=== PATIENT | male | born 1965 | race American Indian/Alaskan Native ===

== ENCOUNTER 2021-07-08 16:42 | Emergency (ER) | payer OTHER, SELFPAY ==
--- NOTE | ~2021-07-08 | XR_ITS ---
EXAMINATION: XR foot LT 2V DATE: 07/08/2021 17:48 INDICATION: Left foot numbness and swelling. TECHNIQUE: 2 views of left foot were obtained. COMPARISON: None. FINDINGS: Bone alignment is normal. No fracture. There is mild osteoarthritis of first metatarsophala ngeal joint and some of the interphalangeal joints and midfoot joints. There are enthesophytes at the posterior and plantar aspects of calcaneal tuberosity. IMPRESSION: 1. Mild polyarticular osteoarthritis. Reviewed, dictated and finalized at location A.
--- NOTE | ~2021-07-08 | XR_ITS ---
EXAMINATION: XR foot RT 2V DATE: 07/08/2021 17:48 INDICATION: Right foot numbness. TECHNIQUE: 2 views of right foot were obtained. COMPARISON: None. FINDINGS: There is moderate hallux valgus. No fracture. There is mild osteoarthritis of first metatar sophalangeal joint and some of the interphalangeal joints and midfoot joints. There are enthesophytes at the posterior and plantar aspects of calcaneal tuberosity. IMPRESSION: 1. Moderate hallux valgus. 2. Mild polyarticular osteoarthritis. Reviewed, dictated and finalized at location A.
[2021-07-08 17:03] VITALS: BP 110/72; PULSE 71; PULSE 72; RESP 18; RESP 23; TEMP 36.4; O2SAT 95; O2SAT 99
[2021-07-08 17:16] VITALS: BP 106/53; PULSE 66; RESP 20; O2SAT 99
[2021-07-08 17:29] VITALS: BP 106/53; PULSE 69; RESP 21; O2SAT 100
[2021-07-08 17:42] LABS: Basophils Percent Auto 0.7 % (0.2-1.2); Eosinophils Absolute Auto 0.1 K/mm3 (0-0.3); Eosinophils Percent Auto 1.1 % (0-4.4); Hematocrit 46.6 % (42.0-52.0); Hemoglobin 15.9 g/dL (14.0-18.0); Immature Granulocyte Absolute 0.01 K/mm3 (0.00-0.031); Immature Granulocyte Percent A 0.2 % (0-0.5); Lymphocytes Absolute Auto 2.73 K/mm3 (0.9-3.2); Lymphocytes Percent Auto 49.3 % (18.3-44.2); Mean Corpuscular HGB Conc 34.1 g/dl (32-36); Mean Corpuscular Hemoglobin 36.2 pg (26-34); Mean Corpuscular Volume 106.2 fl (80-100); Mean Platelet Volume 9.9 fl (7.4-10.4); Monocytes Absolute Auto 0.3 K/mm3 (0.1-0.6); Neutrophils Absolute Auto 2.4 K/mm3 (1.3-6.7); Neutrophils Percent Auto 42.7 % (45.5-73.1); Platelet Count Result 199 k/mm3 (150-375); Red Blood Count 4.39 M/mm3 (4.6-6.20); Red Cell Distribution Width 13.8 % (11.5-14.5); White Blood Count 5.5 K/mm3 (4.5-10.0)
[2021-07-08 17:54] LABS: Anion Gap 5 mmol/L (8-16); Blood Urea Nitrogen 5 mg/dL (9-20); Calcium 8.1 mg/dL (8.4-10.2); Carbon Dioxide 30 mmol/L (22-30); Chloride 111 mmol/L (98-107); Estimated CRCL calculation 132 ml/min; Estimated Glomerular Filt Rate > 60; Glucose 81 mg/dL (65-110); Potassium 3.3 mmol/L (3.4-5.0); Sodium 146 mmol/L (137-145)
[2021-07-08 18:07] LABS: Ethanol 356 mg/dL (<10)
--- NOTE | 2021-07-08 18:38 | ECG_ITS ---
Measurements Intervals [place] Rate: 68 P: 67 WV: 202 QRS: 12 QRSD: 128 T: 91 QT: 445 QTc: 475 Interpretive Statements SINUS RHYTHM BORDERLINE AV CONDUCTION DELAY LEFT BUNDLE BRANCH BLOCK BASELINE ARTIFACT- I, II, III, AVR, AVL, AVF, V1-V6 ABNORMAL ECG Electronically Signed On 07-09-2021 6:30:22 CDT by Silas Gallo D.O.
[2021-07-08] MEDS: KETOROLAC 15 MG/ML VIAL (*BKC) IV PUSH (18:39)
--- NOTE | 2021-07-08 18:39 | ED.LOWEXIN ---
HPI - Extremity Injury (Lower) General Chief Complaint: Extremity Injury, Lower <Partha Kraus MD - Last Filed: 07/09/21 15:01> Stated Complaint: I cant walk <Partha Kraus MD - Last Filed: 07/09/21 15:01> Time Seen by Provider: 07/08/21 17:13 <Partha Kraus MD - Last Filed: 07/09/21 15:01> Source: patient <Partha Kraus MD - Last Filed: 07/09/21 15:01> History of Present Illness HPI Narrative: Patient presents with bilateral lower extremity pain. Reports has been present for months getting progressively worse. rePorts he cannot walk because his pain is too bad. Denies any trauma he reports his pain is achy and all over his feet radiates up his legs and worse with trying to ambulate. Also reports edema to the lower extremities. Denies chest pain or shortness of breath denies fevers, cough, congestion. He reports he does not take medications on a regular basis <Partha Kraus MD - Last Filed: 07/09/21 15:01> Related Data Home Medications: Home Medications Medication Instructions Recorded Confirmed No Home Medications 07/08/21 07/08/21 <Partha Kraus MD - Last Filed: 07/09/21 15:01> Allergies/Adverse Reactions: Allergies Allergy/AdvReac Type Severity Reaction Status Date / Time No Known Allergies Allergy Mild Verified 07/08/21 17:02 <Partha Kraus MD - Last Filed: 07/09/21 15:01> Review of Systems Review of Systems: CONSTITUTIONAL: Denies fever, chills, or sweats. EYES: Denies visual changes, redness, or discharge. ENT: Denies rhinorrhea, congestion, sore throat, or otalgia. CARDIOVASCULAR: Denies chest pain, palpitations, or edema. RESPIRATORY: Denies cough or dyspnea. GASTROINTESTINAL: Denies abdominal pain, nausea, vomiting, or diarrhea. GENITOURINARY: Denies dysuria or hematuria. SKIN: Denies rash or itching. MUSCULOSKELETAL: Denies back pain, or myalgia. NEUROLOGIC: Denies headache, numbness, dizziness, or weakness. PSYCHIATRIC: Denies anxiety or depression. <Partha Kraus MD - Last Filed: 07/09/21 15:01> All systems reviewed & are unremarkable except as noted in HPI and below <Partha Kraus MD - Last Filed: 07/09/21 15:01> PMFSH Past Medical History Medical History: Medical History (Updated 07/08/21 @ 18:48 by Partha Kraus MD) Bilateral leg numbness Weight loss, abnormal <Partha Kraus MD - Last Filed: 07/09/21 15:01> Family History Family History: Family History Father Family history of premature coronary heart disease Hypertension Mother Family history of premature coronary heart disease Family history of Alzheimer's disease Grandparent Family history of lung cancer Family history of malignant neoplasm of uterus Other Family history of cardiovascular disease <Partha Kraus MD - Last Filed: 07/09/21 15:01> Social History Social History: Social History Smoking status: Current every day smoker (Cigars ~ 4/day) Alcohol intake: current <Partha Kraus MD - Last Filed: 07/09/21 15:01> Exam Narrative: GENERAL: Well-appearing, well-nourished, and in no acute distress. HEAD: Normocephalic, atraumatic. EYES: PERRLA and EOMI. ENT: Nares clear, no rhinorrhea or epistaxis. Mucous membranes moist. NECK: Supple. No masses. No JVD CHEST: Clear to auscultation. No respiratory distress. No wheezes rales or rhonchi HEART: Regular rate and rhythm. No murmur heard. Normal peripheral pulses. ABDOMEN: Soft, nontender, nondistended, normal active bowel sounds. EXTREMITIES: Normal range of motion. No edema. SKIN: Warm, dry, no rash. NEURO: No focal deficits. Alert and oriented x3. PSYCH: Normal mood and affect. <Partha Kraus MD - Last Filed: 07/09/21 15:01> Course Reevaluation(s) Reevaluation #1: Patient reported suicidal ideation with a plan to the n
--- NOTE | 2021-07-08 18:41 | PC.NURSE ---
Patient reports I just want to , I have a plan but don't have any means to act out this plan. 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 I just want to , I have no medications and an homeless. EDP aware at this time.
[2021-07-08 18:58] LABS: Acetaminophen < 10 ug/mL (10-30); Salicylate < 1.0 mg/dL (2-20)
[2021-07-08 19:00] VITALS: BP 110/63; PULSE 79; RESP 28; O2SAT 98
[2021-07-08 19:04] LABS: Add Urine Microscopic? NO; Appearance Urine Clear (Clear); Bilirubin Urine Negative (Negative); Blood Urine Negative (Negative); Color Urine Straw (Yellow); Glucose Urine UA Negative (Negative); Ketones Urine Negative (Negative); Leukocyte Esterase Ur Negative LEU/UL (Negative); Nitrate Urine Negative (Negative); Protein Urine Negative (Negative); Urobilinogen Urine Negative mg/dL (<2.0)
[2021-07-08 19:06] LABS: Specific Grav Ur 1.003 (1.001-1.035)
[2021-07-08 19:08] LABS: Barbiturate Screen Urine Negative (Negative); Benzodiazepines Screen Urine Negative (Negative)
[2021-07-08 19:10] LABS: Amphetamine Screen Urine Negative (Negative); Cannabinoid Screen Urine Negative (Negative); Methadone Screen Urine Negative (Negative); Opiate Screen Urine Negative (Negative); Phencyclidine Screen Urine Negative (Negative)
[2021-07-08 20:00] VITALS: BP 130/82; PULSE 77; RESP 16; O2SAT 96
[2021-07-08 21:08] VITALS: BP 133/85; PULSE 78; RESP 16; O2SAT 96
[2021-07-08 21:58] LABS: Alanine Aminotransferase 28 U/L (4-50); Albumin Level 3.8 g/dL (3.5-5.1); Alkaline Phosphatase 53 U/L (38-126); Aspartate Amino Transferase 46 U/L (17-59); Bilirubin,Total 0.2 mg/dL (0.2-1.3)
[2021-07-08 22:08] LABS: NT Pro B Type Natriuretic Pept 283 pg/mL (5-100)
[2021-07-09 01:57] VITALS: BP 129/69; PULSE 81; RESP 16; O2SAT 98
[2021-07-09 03:55] VITALS: BP 152/84; PULSE 89; RESP 18; O2SAT 98
[2021-07-09 05:57] LABS: Ethanol 50 mg/dL (<10)
[2021-07-09 07:01] VITALS: BP 181/93; PULSE 143; RESP 18; TEMP 36.7; O2SAT 100
[2021-07-09 07:35] VITALS: BP 170/93; PULSE 94; RESP 17; TEMP 36.8; O2SAT 99
--- NOTE | 2021-07-09 08:19 | PC.NURSE ---
Crisis hotline called at this time. Reports they will come in and evaluate the patient.
--- NOTE | 2021-07-09 10:00 | PC.NURSE ---
[facility] and approved to be discharged with a safety plan in place. Dr. Kraus made aware of this.
[2021-07-09 21:22] LABS: Cocaine Screen Urine Negative (Negative)
== END 2021-07-09 11:23 | disposition home or self-care (01) ==
PROVIDERS: General Practice; Emergency Provider Emergency Medicine; PCP Family Medicine
DX: F10.10 Alcohol abuse, uncomplicated (principal); Y90.8 Blood alcohol level of 240 mg/100 ml or more; M79.605 Pain in left leg; M79.604 Pain in right leg; R60.0 Localized edema; F17.290 Nicotine dependence, other tobacco product, uncomplicated; I44.7 Left bundle-branch block, unspecified
CPT/HCPCS: 36415; 73620; 80048; 80076; 80307; 81003; 83880; 84443; 85025; 93005; 96372; 99284; J1885

== ENCOUNTER 2022-12-19 18:49 | Emergency (ER) | payer OTHER, SELFPAY ==
--- NOTE | ~2022-12-19 | CT_ITS ---
EXAMINATION: CT cervical spine wo con DATE: 12/19/2022 20:05 INDICATION: Head injury TECHNIQUE: Computed tomography (CT) of the cervical spine was performed without intravenous contrast. The dose-length product (DLP) was 450.49 mGy-cm. Automated exposure control and iterative reconstruc tion technique were employed. COMPARISON: None FINDINGS: Bone alignment is normal. There is no fracture. There is severe loss of intervertebral disc space height at C6-7 and moderate loss of intervertebral disc space height throughout the remainder of the cervical spine. The odontoid process is intact. Degenerative osteophytes project from the ante rior endplates of multiple vertebral bodies. There is multilevel severe facet and uncovertebral joint osteoarthritis. There is moderate central canal stenosis at C6-7. IMPRESSION: 1. Moderate to severe cervical spondylosis without acute findings. Reviewed, dictated and finalized at location F.
--- NOTE | ~2022-12-19 | CT_ITS ---
EXAMINATION: CT brain wo con INDICATION: Head injury COMPARISON: None TECHNIQUE: Standard unenhanced head CT. The dose-length product (DLP) was 605.33 mGy-cm. The mA was a djusted according to patient size. Iterative reconstruction technique was employed. FINDINGS: There is no intracranial hemorrhage, acute infarction, or abnormal mass lesion. The ventric les are normal. There is no abnormal mass effect or midline shift. The massey-white matter differentiat ion is normal. The basal cisterns are patent. The orbits are normal. The paranasal sinuses, mastoids and calvarium are normal. IMPRESSION: 1. No acute intracranial abnormality. Reviewed, dictated and finalized at location F.
[2022-12-19 18:53] VITALS: BP 111/69; PULSE 74; RESP 14; TEMP 36.6; O2SAT 99
[2022-12-19] MEDS: ACETAMINOPHEN 500 MG TABLET 1000 MG PO (19:45)
--- NOTE | 2022-12-19 19:46 | ED.GENADULT ---
HPI - General Adult General Chief complaint: Fall Stated complaint: fall with head injury Time Seen by Provider: 12/19/22 19:01 History of Present Illness HPI narrative: this is a 57-year-old male sent from [facility] rehab after a fall yesterday at 1:00 p.m.. Patient was walking with his walker when his legs gave out he fell forward and struck the front of his head. He is on aspirin and Plavix. He was sent to the hospital approximately 36 hours later. Patient has been hospitalized for lower extremity weakness although he is not sure of the cause. He is denying other complaints at this time. Related Data Home Medications Medication Instructions Recorded Confirmed aspirin 81 mg capsule 81 mg PO DAILY 12/19/22 12/19/22 atorvastatin 40 mg tablet 40 mg PO DAILY 12/19/22 12/19/22 cholecalciferol (vitamin D3) 50 12/19/22 12/19/22 mcg (2,000 unit) tablet clopidogrel 75 mg tablet 75 mg PO DAILY 12/19/22 12/19/22 cyanocobalamin (vitamin B-12) 1,000 mcg PO DAILY 12/19/22 12/19/22 1,000 mcg tablet diltiazem HCl 240 mg capsule,24 240 mg PO DAILY 12/19/22 12/19/22 hr,extended release fluoxetine 20 mg capsule 20 mg PO DAILY 12/19/22 12/19/22 Allergies Allergy/AdvReac Type Severity Reaction Status Date / Time No Known Allergies Allergy Mild Verified 10/05/21 09:28 [facility] Past Medical History Medical History Alcohol abuse Bilateral leg numbness BMI 28.0-28.9,adult Homelessness Neuropathy Weight loss, abnormal Family History Family History Father Family history of premature coronary heart disease Hypertension Mother Family history of premature coronary heart disease Family history of Alzheimer's disease Grandparent Family history of lung cancer Family history of malignant neoplasm of uterus Other Family history of cardiovascular disease Social History Social History Smoking status: Current every day smoker (Cigars ~ 4/day) Alcohol intake: current Exam Narrative: APPEARANCE: Patient appears older than his stated age, Head: atraumatic. facial tattoos EYES: 2 mm equal and reactive NOSE: Atraumatic NECK: Trachea midline RESPIRATORY: No increased rate of breathing clear to auscultation CARDIOVASCULAR: RRR, nonpitting edema of lower extremities ABDOMINAL: Non-distended MUSCULOSKELETAl: No obvious deformities NEURO: Alert. Cranial nerves 2-12 grossly intact. sensation light touch motor function cerebellar function intact in the upper extremities. Lower extremities have severe weakness worse on the left than the right. Some effort against gravity but unable to lift his legs off the ground. Decreased sensation which patient says is chronic. SKIN:: Warm, dry. Normal color PSYCHIATRIC: Normal affect Course Vital Signs Vital signs: Vital Signs Temperature 97.8 F 12/19/22 18:53 Pulse Rate 74 12/19/22 18:53 Respiratory Rate 14 12/19/22 18:53 Blood Pressure 111/69 12/19/22 18:53 Pulse Oximetry 99 12/19/22 18:53 Oxygen Delivery Room Air 12/19/22 18:53 Temperature 97.8 F 12/19/22 18:53 Pulse Rate 74 12/19/22 18:53 Respiratory Rate 14 12/19/22 18:53 Blood Pressure 121/63 12/19/22 21:01 Pulse Oximetry 99 12/19/22 18:53 Oxygen Delivery Room Air 12/19/22 18:53 Medical Decision Making [facility] Narrative Medical decision making narrative: -Presentation: Chronically unwell appearing 57-year-old male presenting 36 hours after a fall on aspirin and Plavix. CT head and C-spine have been ordered. Basic lab work and coags will be obtained. The patient is already in rehab for his lower extremity weakness. -DDX includes but is not limited to: neuropathy, weakness of the lower extremities, intracranial hemorrhage -Co-morbidities complicating care: history of alcoholism, chronic lower
[2022-12-19 20:13] VITALS: BP 105/72
[2022-12-19 20:16] VITALS: BP 106/66
[2022-12-19 20:24] LABS: Basophils Percent Auto 0.6 % (0.2-1.2); Eosinophils Absolute Auto 0.1 K/mm3 (0-0.3); Eosinophils Percent Auto 1.4 % (0-4.4); Hematocrit 34.4 % (42.0-52.0); Hemoglobin 11.5 g/dL (14.0-18.0); Immature Granulocyte Absolute 0.02 K/mm3 (0.00-0.031); Immature Granulocyte Percent A 0.4 % (0-0.5); Lymphocytes Absolute Auto 1.59 K/mm3 (0.9-3.2); Lymphocytes Percent Auto 31.4 % (18.3-44.2); Mean Corpuscular HGB Conc 33.4 g/dl (32-36); Mean Corpuscular Hemoglobin 37.7 pg (26-34); Mean Corpuscular Volume 112.8 fl (80-100); Mean Platelet Volume 11.5 fl (7.4-10.4); Monocytes Absolute Auto 0.6 K/mm3 (0.1-0.6); Neutrophils Absolute Auto 2.8 K/mm3 (1.3-6.7); Neutrophils Percent Auto 54.2 % (45.5-73.1); Platelet Count Result 148 k/mm3 (150-375); Red Blood Count 3.05 M/mm3 (4.6-6.20); White Blood Count 5.1 K/mm3 (4.5-10.0)
[2022-12-19 20:31] VITALS: BP 128/61
[2022-12-19 20:33] LABS: Anion Gap 4 mmol/L (8-16); Blood Urea Nitrogen 14 mg/dL (9-20); Calcium 7.9 mg/dL (8.4-10.2); Carbon Dioxide 28 mmol/L (22-30); Chloride 101 mmol/L (98-107); Estimated CRCL calculation 79 ml/min; Estimated Glomerular Filt Rate > 60; Glucose 103 mg/dL (65-110); Potassium 4.3 mmol/L (3.4-5.0); Sodium 133 mmol/L (137-145)
[2022-12-19 20:35] LABS: Schistocytes None Seen (NORMAL)
[2022-12-19 20:36] LABS: Macrocytosis 1+ (NORMAL)
[2022-12-19 20:37] LABS: INR 1.2; Partial Thromboplastin Time 33.4 SECONDS (22.3-36.8); Prothrombin Time 14.3 Seconds (11.1-14.7)
[2022-12-19 21:01] VITALS: BP 121/63
--- NOTE | 2022-12-19 21:19 | PC.NURSE ---
[facility] rn called with report; will be transported home
--- NOTE | 2022-12-19 22:07 | PC.NURSE ---
[facility] here.
== END 2022-12-19 22:26 ==
PROVIDERS: Emergency Provider Emergency Medicine; PCP Family Medicine
DX: G62.9 Polyneuropathy, unspecified (principal); F10.10 Alcohol abuse, uncomplicated; F17.290 Nicotine dependence, other tobacco product, uncomplicated; Z79.82 Long term (current) use of aspirin; Z79.01 Long term (current) use of anticoagulants; Y90.9 Presence of alcohol in blood, level not specified; W18.30XA Fall on same level, unspecified, initial encounter
CPT/HCPCS: 36415; 70450; 72125; 80048; 85025; 85610; 85730; 99284; A9270

== ENCOUNTER 2023-07-24 13:32 | Outpatient (CLI) | payer MEDICARE, MEDICAID, SELFPAY ==
--- NOTE | 2023-07-24 14:30 | NEURO_ITS ---
Impression: # Complains of pain, no feeling and inability to move. History of multiple back surgeries. # Neuropathy with no responses on the left side. # Needle/EMG exam reveals no fibs but decreased motor unit potentials in multiple muscles. # Severe edema noted. # Clinical correlation recommended.Findings suggestive of higher involvement.Edema compromised the exam. Nerve Conduction Studies Anti Sensory Summary Table Stim Site NR Peak (ms) P-T Amp (?V) Site1 Site2 Delta-P (ms) Dist (cm) Abdoulaye (m/s) Left Sup Fibular Anti Sensory (Ant Lat Mall) NO RESPONSE 14 cm NR 14 cm Ant Lat Mall 16.0 Right Sup Fibular Anti Sensory (Ant Lat Mall) NO RESPONSE 14 cm NR 14 cm Ant Lat Mall 16.0 Left Sural Anti Sensory (Lat Mall) NO RESPONSE Calf NR Calf Lat Mall 16.0 Right Sural Anti Sensory (Lat Mall) NO RESPONSE Calf NR Calf Lat Mall 16.0 Motor Summary Table Stim Site NR Onset (ms) O-P Amp (mV) Site1 Site2 Delta-0 (ms) Dist (cm) Abdoulaye (m/s) Left Peroneal Motor (Vastus Med) NO RESPONSE Ankle NR Popit Ankle 0.0 Popit NR Right Peroneal Motor (Vastus Med) Ankle 4.0 0.2 Popit Ankle 9.4 39.0 41 Popit 13.4 0.2 Left Tibial Motor (Abd Romero Brev) NO RESPONSE Ankle NR Knee NR Right Tibial Motor (Abd Romero Brev) Ankle 4.6 1.7 Knee Ankle 11.7 40.0 34 Knee 16.3 0.9 F Wave Studies NR F-Lat (ms) L-R F-Lat (ms) Left Peroneal (Mrkrs) (EDB) NO RESPONSE NR Right Peroneal (Mrkrs) (EDB) 59.65 Left Tibial (Mrkrs) (Abd Hallucis) DISPERSED RESPONSE NR Right Tibial (Mrkrs) (Abd Hallucis) 59.44 EMG Side Muscle Nerve Root Ins Act Fibs Amp Dur Recrt Comment Right AntTibialis Dp Br Fibular L4-5 Nml Nml Nml Nml Reduced Right Gastroc Tibial S1-2 Nml Nml Nml Nml Reduced Right Fibularis Long Sup Br Fibular L5-S1 Nml Nml Nml Nml Reduced Right Flex Dig Long Tibial L5-S2 Nml Nml Nml Nml Reduced Right Ext Dig Brev Dp Br Fibular L5, S1 Nml Nml Nml Nml Reduced Left AntTibialis Dp Br Fibular L4-5 Nml Nml Nml Nml Reduced Left Gastroc Tibial S1-2 Nml Nml Nml Nml Reduced Left Fibularis Long Sup Br Fibular L5-S1 Nml Nml Nml Nml Reduced Left Flex Dig Long Tibial L5-S2 Nml Nml Nml Nml Reduced Left Ext Dig Brev Dp Br Fibular L5, S1 Nml Nml Nml Nml Reduced MTDD
[2023-07-24 15:03] LABS: Basophils Percent Auto 0.6 % (0.2-1.2); Eosinophils Absolute Auto 0.1 K/mm3 (0-0.3); Eosinophils Percent Auto 1.6 % (0-4.4); Hematocrit 45.6 % (42.0-52.0); Hemoglobin 14.7 g/dL (14.0-18.0); Immature Granulocyte Absolute 0.04 K/mm3 (0.00-0.031); Immature Granulocyte Percent A 0.6 % (0-0.5); Lymphocytes Percent Auto 26.6 % (18.3-44.2); Mean Corpuscular HGB Conc 32.2 g/dl (32-36); Mean Corpuscular Hemoglobin 31.3 pg (26-34); Mean Corpuscular Volume 97.2 fl (80-100); Monocytes Absolute Auto 0.4 K/mm3 (0.1-0.6); Monocytes Percent Auto 6.1 % (2.6-8.5); Neutrophils Absolute Auto 4.1 K/mm3 (1.3-6.7); Neutrophils Percent Auto 64.5 % (45.5-73.1); Platelet Count Result 202 k/mm3 (150-375); Red Blood Count 4.69 M/mm3 (4.6-6.20); Red Cell Distribution Width 14.4 % (11.5-14.5); White Blood Count 6.4 K/mm3 (4.5-10.0)
[2023-07-24 15:13] LABS: Anion Gap 5 mmol/L (8-16); Blood Urea Nitrogen 21 mg/dL (9-20); Calcium 9.5 mg/dL (8.4-10.2); Carbon Dioxide 31 mmol/L (22-30); Chloride 99 mmol/L (98-107); Estimated Glomerular Filt Rate > 60; Glucose 123 mg/dL (65-110); Potassium 4.4 mmol/L (3.4-5.0); Sodium 135 mmol/L (137-145)
[2023-07-24 15:15] LABS: Rheumatoid Factor < 12.0 IU/ML (<12)
[2023-07-24 15:31] LABS: Erythrocyte Sedimentation Rate 18 mm/hr (0-20)
[2023-07-25 17:07] LABS: Vitamin B12 > 1000.0 pg/mL (239-931)
== END 2023-07-24 13:33 | disposition home or self-care (01) ==
PROVIDERS: PCP Family Medicine; Visit Provider Family Medicine
DX: M43.06 Spondylolysis, lumbar region (principal); M48.02 Spinal stenosis, cervical region; M21.372 Foot drop, left foot; I10 Essential (primary) hypertension; R60.9 Edema, unspecified; Z98.890 Other specified postprocedural states; Z98.1 Arthrodesis status
CPT/HCPCS: 36415; 80048; 82607; 84443; 85025; 85652; 86038; 86430; 95886; 95910

== ENCOUNTER 2023-10-02 07:46 | Outpatient (CLI) | payer MEDICARE, MEDICAID, SELFPAY ==
--- NOTE | ~2023-10-02 | MR_ITS ---
MRI of the lumbar spine Clinical History: Spondylolysis Technique: Axial T2-weighted images, and sagittal T1-weighted, T2-weighted, and STIR images were acqu ired. Following intravenous administration of 20 cc MultiHance gadolinium, T1-weighted fat-sat imagin g was performed in the axial and sagittal planes. COMPARISON: 08/29/2019 Findings: There is stable posterior fusion hardware extending from L3 through L5, bilateral rods and transpedicular screws present. There are probable interbody fusion devices at the L3-L4 and L4-L5 dis c spaces. There is probable posterior decompression at L4 and L5. No suspicious bone marrow signal ab normality seen. At L1-L2, there is moderate degenerative distended. There is mild disc bulge and moderate facet arthr opathy. There is moderate central canal stenosis. There is moderate to advanced bilateral neural fora ojse narrowing. At L2-L3, there is mild disc bulge and moderate facet arthropathy, with moderate central canal stenos is. There is mild to moderate bilateral neural foraminal narrowing. At L3-L4, there is posterior decompression. No central canal stenosis. Neural foramina are poorly nancy luated. Possible mild bilateral neural foraminal narrowing. At L4-L5, there is no eduardo central canal stenosis. Probable at least moderate right neural foraminal narrowing. At L5-S1, there is severe thecal sac compression largely due to epidural fat which is prominent in th is region. No significant disc bulge or herniation. There is mild facet arthropathy. Neural foramina are probably narrowed bilaterally. Paravertebral soft tissues are grossly unremarkable. No suspicious or abnormal postcontrast enhanceme nt identified. Impression: Posterior fusion changes from L3 to L5, similar to prior exam. Probable severe thecal sac compression at L5-S1, largely due to prominent epidural fat at this region . Probable multilevel neural foraminal narrowing, as above. Moderate central canal stenosis at L1-L2 and L2-L3. Reviewed, dictated and finalized at location M. GHT ADJUSTER Impression: Posterior fusion changes from L3 to L5, similar to prior exam. Probable severe thecal sac compression at L5-S1, largely due to prominent epidu ral fat at this region. Probable multilevel neural foraminal narrowing, as above. Moderate central canal stenosis at L1-L2 and L2-L3.
== END 2023-10-02 07:47 | disposition home or self-care (01) ==
LOC: ANHIMG 07:52
PROVIDERS: PCP Family Medicine; Visit Provider Family Medicine
DX: M43.06 Spondylolysis, lumbar region (principal); M43.26 Fusion of spine, lumbar region; M48.061 Spinal stenosis, lumbar region without neurogenic claudication; M21.372 Foot drop, left foot
CPT/HCPCS: 72158; A9577

== ENCOUNTER 2024-04-22 10:16 | Outpatient (CLI) | payer MEDICARE, MEDICAID, SELFPAY ==
--- NOTE | ~2024-04-22 | MR_ITS ---
MRI of the cervical spine Clinical History: Spinal stenosis Technique: Axial T2-weighted and gradient images, and sagittal T1-weighted, T2-weighted, and STIR ameena ges were acquired. Findings: No fracture or sublocation seen. There is straightening of the normal cervical lordosis. No suspicious pulmonary signal abnormality seen. At C2-C3, there is no disc bulge or herniation. There is mild canal stenosis but no cord compression. There is probable right facet arthropathy with right neural foraminal narrowing. Left neural foramen preserved. At C3-C4, there is disc ossify complex with mild canal stenosis but no eduardo cord compression. There is bilateral neural foraminal narrowing with bilateral facet arthropathy. At C4-C5, there is disc ossify complex, with mild canal stenosis and mild flattening the ventral cord . There is bilateral neural foraminal narrowing with bilateral facet arthropathy. At C5-C6, there is disc osteophyte complex resulting in moderate to severe spinal canal stenosis and cord compression. There is bilateral neural foraminal narrowing, right worse than left, with bilatera l facet arthropathy. At C6-C7, there is degenerative disc narrowing. Diffuse disc osteophyte complex is present, resulting in severe spinal canal stenosis/cord compression, and bilateral severe neural foraminal narrowing. Possible focal hyperintense T2 signal spinal cord at the C6-C7 level, which could reflect myelomalaci a. Paravertebral soft tissues are unremarkable. Impression: Diffuse, severe degenerative spondylosis, as above. There is moderate/severe spinal canal stenosis an d cord compression at C5-C6 and C6-C7, with multilevel advanced bilateral neural foraminal narrowing. Possible focal cord edema at the C6-C7 level, which could reflect myelomalacia. Reviewed, dictated and finalized at [facility]. Impression: Diffuse, severe degenerative spondylosis, as above. There is moderate/severe sp inal canal stenosis and cord compression at C5-C6 and C6-C7, with multilevel ad vanced bilateral neural foraminal narrowing. Possible focal cord edema at the C6-C7 level, which could reflect myelomalacia.
== END 2024-04-22 10:17 | disposition home or self-care (01) ==
PROVIDERS: PCP Family Medicine; Visit Provider Neurological Surgery
DX: M48.02 Spinal stenosis, cervical region (principal); M50.323 Other cervical disc degeneration at C6-C7 level; G95.29 Other cord compression
CPT/HCPCS: 72141

== ENCOUNTER 2024-05-01 16:54 | Emergency (ER) | payer MEDICARE, MEDICAID, SELFPAY ==
--- NOTE | ~2024-05-01 | CT_ITS ---
CT cervical spine wo con Ordering provider: Srinath Pillai MD History: . fall . Comparison: None. Technique: CT of the cervical spine was performed without contrast. Sagittal and coronal reformatted images were also obtained and reviewed. Automated exposure control and iterative reconstruction kirk hnique were employed. The dose-length product was 553.82 mGy-cm. FINDINGS: VERTEBRAE: No subluxation or acute fracture. The occipital condyles are intact. DISC SPACES: Narrowing of the disks C4-C5, C5-C6, and C6-C7. Osteoarthritic changes of the middle at lantoaxial joint. Multilevel facet joint disease. Multilevel uncovertebral joint osteoarthritic burns es. Narrowing of the right intervertebral foramen at the level of C3-C4 bilateral narrowing of the fo ramina at the level of C4-C5, C5-C6 and C6-C7 by osteophytes. PARASPINOUS SOFT TISSUES: Bilateral carotid calcification. IMPRESSION: No acute osseous abnormality cervical spine. Multilevel degenerative disc disease. Reviewed, dictated and finalized at location A.
--- NOTE | ~2024-05-01 | CT_ITS ---
CT brain wo con Ordering provider: Srinath Pillai MD History: 59 years Male with . fall . Comparison: December 19, 2022 Technique: CT of the head without contrast. Radiation reduction technique utilized. The dose-length product was 605.33 mGy-cm. FINDINGS: BRAIN PARENCHYMA AND CSF SPACES: No midline shift, mass effect or hemorrhage. The brain parenchyma a nd CSF spaces are otherwise normal. VISUALIZED PARANASAL SINUSES: Well aerated. MASTOIDS: Well aerated. BONES: The bones appear intact. SOFT TISSUES: Visualized nasopharynx is normal. Superficial soft tissues are normal. IMPRESSION: No acute intracranial findings. Reviewed, dictated and finalized at location A.
--- NOTE | ~2024-05-01 | XR_ITS ---
XR shoulder RT min 2V Ordering provider: Srinath Pillai MD History: . fall . Comparison: None. FINDINGS: BONES: No acute fracture or dislocation. JOINT SPACES: The acromioclavicular joint shows osteoarthritic changes.. The glenohumeral joint is no rmal. SOFT TISSUES: Normal. IMPRESSION: No acute osseous abnormality right shoulder. Reviewed, dictated and finalized at location A.
[2024-05-01 16:56] VITALS: BP 125/104; PULSE 71; RESP 16; TEMP 36.4; O2SAT 100
[2024-05-01] MEDS: methocarbamoL 500 MG TABLET 1500 MG PO (17:48)
[2024-05-01] MEDS: HYDROmorphone HCL INJ (*CRX) 1 MG/ML SYR IM (17:49)
[2024-05-01] MEDS: ACETAMINOPHEN 500 MG TABLET 1000 MG PO (17:49)
--- NOTE | 2024-05-01 18:46 | ED.FALL ---
HPI - Fall General Chief Complaint: Fall Stated Complaint: fall out of w/c Time Seen by Provider: 05/01/24 17:03 History of Present Illness HPI Narrative: This is a 59-year-old male with a past medical history significant for central canal stenosis with multiple cervical fusions, functional paraparesis, peripheral arterial disease. Patient is wheelchair-bound. Today patient presents to the ED for evaluation of a headache as well as right-sided shoulder pain after falling out of his wheelchair. He was in the wheelchair getting into a motorized vehicle for transport when the car suddenly shifted and he fell backwards out of his wheelchair and hitting his head. He did not lose consciousness and does not take any blood thinner medications aside from aspirin and Plavix. He was able to get up with assistance back into his wheelchair. This occurred 2 days prior but he has been complaining of a headache since this happened. Denies any vision changes, nausea, vomiting, fevers, chills, chest pain, shortness a breath. Denies any new neuropathy or sensory deficits, no motor deficits. No history of strokes or TIAs. Was previously in his normal state of health. Has full range of motion is right-sided shortness complaining of some tenderness along the anterior lateral aspect. Related Data Home Medications Medication Instructions Recorded Confirmed aspirin 81 mg capsule 81 mg PO DAILY 12/19/22 08/19/23 atorvastatin 40 mg tablet 40 mg PO DAILY 12/19/22 08/19/23 cholecalciferol (vitamin D3) 50 12/19/22 08/19/23 mcg (2,000 unit) tablet clopidogrel 75 mg tablet 75 mg PO DAILY 12/19/22 08/19/23 cyanocobalamin (vitamin B-12) 1,000 mcg PO DAILY 12/19/22 08/19/23 1,000 mcg tablet alprazolam 0.5 mg tablet (Xanax) 0.5 mg PO QHS PRN 05/14/23 08/19/23 buspirone 10 mg tablet 10 mg PO BID 06/14/23 08/19/23 Allergies Allergy/AdvReac Type Severity Reaction Status Date / Time No Known Allergies Allergy Mild Verified 04/09/24 09:46 Review of Systems Review of Systems: As reviewed above in HPI [facility] Past Medical History Medical History Alcohol abuse Bilateral leg numbness Bilateral leg weakness BMI 28.0-28.9,adult BMI 38.0-38.9,adult BMI 40.0-44.9, adult Body mass index (BMI) of 40.1 to 44.9 in adult Central stenosis of spinal canal Cervical stenosis of spinal canal Depression with anxiety Femoral artery occlusion, left Femoral artery stenosis, left Homelessness Left foot drop Lumbar spondylolysis Neural foraminal stenosis of lumbosacral spine Neuropathy Peripheral vascular disease Weight loss, abnormal Surgical History Surgical History H/O shoulder surgery H/O spinal fusion History of elbow surgery History of hand surgery Family History Family History Father Family history of premature coronary heart disease Hypertension Acute myocardial infarction Mother Family history of premature coronary heart disease Family history of Alzheimer's disease Grandparent Family history of lung cancer Family history of malignant neoplasm of uterus Sibling Acute myocardial infarction Morbid obesity Sibling Heart disease Other Family history of cardiovascular disease Social History Social History Smoking status: Current every day smoker (Cigars ~ 4/day) Tobacco type: cigars Second hand tobacco smoke exposure: Yes Alcohol intake: current Substance use: never Substance use type: does not use Do You Feel Safe in your Home?: Yes Lack of Transportation: No Lack of Food: Never True Current Housing: I Have Housing Concerned About Future Housing: No Difficulty Paying Gas/Electric Bills: No Difficulty Paying for Meds: No Currently
[2024-05-01 19:17] VITALS: BP 136/89; PULSE 76; RESP 18; O2SAT 95
[2024-05-01] MEDS: HYDROcodone/acetaminophen (*CRX) 5-325 MG TABLET 1 TAB PO (19:18)
[2024-05-01 22:14] VITALS: BP 138/66; PULSE 76; RESP 15; O2SAT 98
== END 2024-05-01 22:45 ==
PROVIDERS: Emergency Provider Student in an Organized Health Care Education/Training Program; PCP Family Medicine
DX: S09.90XA Unspecified injury of head, initial encounter (principal); M25.511 Pain in right shoulder; Z79.01 Long term (current) use of anticoagulants; Z79.82 Long term (current) use of aspirin; F17.290 Nicotine dependence, other tobacco product, uncomplicated; W05.0XXA Fall from non-moving wheelchair, initial encounter
CPT/HCPCS: 70450; 72125; 73030; 96372; 99284; A9270; J1170

== ENCOUNTER 2024-05-05 12:02 | Outpatient (CLI) | payer MEDICARE, MEDICAID, SELFPAY ==
--- NOTE | ~2024-05-05 | XR_ITS ---
XR cervical spine 4-5V Ordering provider: Ilene Caicedo MD History: . G95.9 - Disease of spinal cord, unspecified . Comparison: None. FINDINGS: VERTEBRAL BODIES: Normal height and alignment. No visible fracture or subluxation. The dens is intact . Degenerative changes of the spine. C7 is not well demonstrated. DISK SPACES: Narrowing of the disc C5-C6 and C6-C7. Multilevel uncovertebral joint osteoarthritic jesse nges. Multilevel facet joint disease. PARASPINOUS SOFT TISSUES: No prevertebral soft tissue swelling. Bilateral carotid calcifications. IMPRESSION: No acute osseous abnormality cervical spine. Multilevel degenerative disc disease. Reviewed, dictated and finalized at location A.
== END 2024-05-05 12:03 | disposition home or self-care (01) ==
LOC: ANHIMG 12:05
PROVIDERS: PCP Family Medicine; Visit Provider Neurological Surgery
DX: G95.9 Disease of spinal cord, unspecified (principal); M50.322 Other cervical disc degeneration at C5-C6 level; M50.323 Other cervical disc degeneration at C6-C7 level
CPT/HCPCS: 72050

== ENCOUNTER 2024-05-18 08:37 | Outpatient (CLI) | payer MEDICARE, MEDICAID, SELFPAY ==
--- NOTE | 2024-05-18 08:52 | ECG_ITS ---
Test Date: 2024-05-18 09:04:41 Measurements Intervals [place] Rate: 81 P: 57 OR: 212 QRS: 19 QRSD: 134 T: 86 QT: 426 QTc: 497 Interpretive Statements SINUS RHYTHM WITH FIRST DEGREE AV BLOCK INTRAVENTRICULAR CONDUCTION DELAY [130+ ms QRS DURATION] ABNORMAL ECG No previous ECG available for comparison Electronically Signed On 05-19-2024 07:18:41 CDT by Mohsen Gonzalez M.D.
[2024-05-18 10:09] LABS: Hematocrit 46.1 % (42.0-52.0); Hemoglobin 14.8 g/dL (14.0-18.0); Mean Corpuscular HGB Conc 32.1 g/dl (32-36); Mean Corpuscular Hemoglobin 31.6 pg (26-34); Mean Corpuscular Volume 98.5 fl (80-100); Mean Platelet Volume 10.5 fl (7.4-10.4); Platelet Count Result 209 k/mm3 (150-375); Red Blood Count 4.68 M/mm3 (4.6-6.20); Red Cell Distribution Width 15.6 % (11.5-14.5); White Blood Count 7.2 K/mm3 (4.5-10.0)
[2024-05-18 10:12] LABS: Add Urine Microscopic? NO; Appearance Urine Clear (Clear); Bilirubin Urine Negative (Negative); Blood Urine Negative (Negative); Color Urine Yellow (Yellow); Glucose Urine UA Negative (Negative); Ketones Urine Negative (Negative); Leukocyte Esterase Ur Negative LEU/UL (Negative); Nitrate Urine Negative (Negative); Protein Urine Negative (Negative); Specific Grav Ur 1.011 (1.001-1.035)
[2024-05-18 10:23] LABS: Anion Gap 10 mmol/L (4-12); Blood Urea Nitrogen 17 mg/dL (9-20); Calcium 8.7 mg/dL (8.4-10.2); Carbon Dioxide 29 mmol/L (22-30); Chloride 97 mmol/L (98-107); Estimated Glomerular Filt Rate > 60; Glucose 96 mg/dL (65-110); Potassium 3.9 mmol/L (3.4-5.0); Sodium 136 mmol/L (137-145)
[2024-05-18 10:39] LABS: Partial Thromboplastin Time 31.4 Seconds (22.3-36.8)
== END 2024-05-18 08:38 | disposition home or self-care (01) ==
PROVIDERS: PCP Family Medicine; Visit Provider Neurological Surgery
DX: Z01.818 Encounter for other preprocedural examination (principal); R94.31 Abnormal electrocardiogram [ECG] [EKG]; I44.0 Atrioventricular block, first degree; G95.9 Disease of spinal cord, unspecified; I10 Essential (primary) hypertension
CPT/HCPCS: 36415; 80048; 81003; 85027; 85610; 85730; 93005

== ENCOUNTER 2024-05-20 00:16 | Day surgery (SDC) | payer MEDICARE, MEDICAID, SELFPAY ==
[2024-05-15 13:49] VITALS: BMI 43.4
--- NOTE | 2024-05-15 14:28 | PC.NURSE ---
Addendum entered by Danny Zaman RN 05/15/24 14:36: Appointment SaturdayMay 18 at 0830 for blood work, urine and EKG. Come to surgery entrance for this also. Original Note: Report to the Outpatient Waiting Room, entrance under the green pavilion located off [facility], at time _0830_ on date _[id number]_. Planned Procedure Time: _1030_.? Time changes happen often and if your time is changed the preop area will call you the afternoon before. - You and your visitor will be asked to self-screen and do not enter if you have any COVID symptoms. Please call surgeon if you need to reschedule. - A mask is optional within the hospital at this time. Patients may have clear liquids (water, carbonated beverages, clear teas, apple juice) until 3 hours prior to surgery with a maximum of 20 ounces. - No food from midnight until time of surgery and no smoking Take only the following medications with a SIP of water on the morning of surgery: ___Alprazolam, Buspirone, Citalopram, Diltiazem, and Gabapentin___ DO NOT STOP ANY OF YOUR OTHER PRESCRIPTION MEDICATIONS PRIOR TO SURGERY EXCEPT THE FOLLOWING Medications to discontinue per physician Clopidogrel and Aspirin Date to take last xill___[id number] Please no make-up, nail syriac, hairspray, perfume, deodorant, or body powder the day of surgery.? No jewelry (including any body piercings) or valuables the day of surgery, leave them at home.? Please take a shower or bath the night before, or the morning of, surgery with an antibacterial soap.? Wear comfortable, loose fitting clothing.? - Jewelry must be removed prior to entering the operating room.? Rings and piercings that are not removed may be cut off. - The hospital will not accept responsibility for valuables.? - Please leave all valuables, including medications, at home the day of surgery. If you are going home after surgery, a licensed truck driver supervisor must drive you home.? - NO public transportation without another adult if you receive anesthesia. - We recommend that an adult stay with you for 24 hours following discharge. - We also recommend that you do not drive, make important decision, drink alcoholic beverages, or take any drugs that were not prescribed by your health care provider for at least 24 hours after your discharge time. Follow any additional instructions given to you from your surgeon. Telephone instructions given to __Teresa delgado home attn Kathy__and asked if any additional questions and then verbalized understanding. Patient advised to call surgeon office or pre surgery nurse liaison [phone] if any additional questions.
[2024-05-20] VITALS (23 sets, daily range): BP systolic 128–160; BP diastolic 72–91; PULSE 64–96; RESP 12–22; TEMP 35.1–37.4; O2SAT 90–99; BMI 42.6
--- NOTE | ~2024-05-20 | XR_ITS ---
EXAMINATION: XR fluoroscopy no charge DATE: 05/20/2024 14:10 INDICATION: C5-C6 partial laminectomy. TECHNIQUE: 2 intraoperative fluoroscopic views of the cervical spine were obtained. I was not present . Fluoroscopy exposure time was 5 seconds. COMPARISON: CT cervical spine 05/01/24 FINDINGS: Lateral views of the cervical spine demonstrate instruments overlying the posterior element s in the cervical spine. IMPRESSION: 1. Instruments overlying the posterior elements of the cervical spine. Reviewed, dictated and finalized at location A.
--- NOTE | 2024-05-20 10:05 | SUR.PREOP ---
1005- Dr. Caicedo in to see patient's wound on right lower extremity. After assessment of wound Dr. Caicedo has determined OK to proceed with surgery and requested wound consult orders be placed.
--- NOTE | 2024-05-20 10:27 | WPDHPUPDATE1 ---
History and Physical Update Update Date/Time: 05/20/24 10:27 History and Physical has been reviewed, including an updated exam of the patient. There are NO changes in the patient's condition. Risks, benefits, and alternatives have been discussed and questions answered. Patient agrees to proceed with procedure. I was notified about a wound on his right calf which he has had for about 6 weeks. He thinks this is a pressure wound from his wheelchair. He took a course of antibiotics which he completed, and the nurses at his shelter are doing daily dressing changes. He does not have fevers, chills, night sweats, etc. I do not think that the wound looks actively infected. Given the severity of his cervical myelopathy and risk of delaying that surgery for potentially months before the wound heals, I have recommended proceeding with surgery today as planned. We will get a wound care consult while he is admitted.
[2024-05-20] MEDS: LACTATED RINGERS 1,000 ML 30 ML IV CONT ×2 (10:35→13:58)
--- NOTE | 2024-05-20 10:43 | WPDANESEPPF ---
Anes - Initial Pre Proc Eval Procedure: Operation Date: 05/20/24 10:30 Proposed Procedures p C5-C6, Partial C7 Laminectomy - Ilene Caicedo MD Date/Time: 05/20/24 10:43 Surgeon: Ilene Caicedo MD Pre Op Diagnosis: cervical myelopathy Patient Data Age: 59 Gender: M Height: 1.75 m Weight: 133.4 kg Allergies Allergy/AdvReac Type Severity Reaction Status Date / Time No Known Allergies Allergy Mild Verified 05/20/24 10:50 Home Medications Medication Instructions Recorded Confirmed Type gabapentin 300 mg capsule 300 mg PO TID #90 caps 08/24/21 05/15/24 Rx aspirin 81 mg capsule 81 mg PO DAILY 12/19/22 05/15/24 History atorvastatin 40 mg tablet 40 mg PO DAILY 12/19/22 05/15/24 History clopidogrel 75 mg tablet 75 mg PO DAILY 12/19/22 05/15/24 History cyanocobalamin (vitamin B-12) 2,000 mcg PO DAILY 12/19/22 05/15/24 History 1,000 mcg tablet buspirone 10 mg tablet 10 mg PO TID 06/14/23 05/15/24 History citalopram 20 mg tablet 20 mg PO DAILY #90 tabs 08/19/23 05/15/24 Rx milnacipran 25 mg tablet (Savella) 25 mg PO BID #60 tabs 01/02/24 05/15/24 Rx buprenorphine 5 mcg/hour weekly 1 patch transdermal Q7D #4 ea 05/01/24 05/15/24 Rx transdermal patch (Butrans) alprazolam 0.5 mg tablet (Xanax) 1 mg PO TID 05/06/24 05/15/24 History acetaminophen 325 mg tablet 650 mg PO Q4H PRN Pain 05/15/24 05/15/24 History calcium carbonate (Tums) 300 mg PO DAILY 05/15/24 05/15/24 History cholecalciferol (vitamin D3) 25 75 mcg PO DAILY 05/15/24 05/15/24 History mcg (1,000 unit) capsule (Vitamin D3) citalopram 10 mg tablet 10 mg PO DAILY 05/15/24 05/15/24 History diltiazem HCl 240 mg 240 mg PO DAILY 05/15/24 05/15/24 History capsule,extended release 24 hr furosemide 20 mg tablet 20 mg PO DAILY 05/15/24 05/15/24 History hydrochlorothiazide 12.5 mg tablet 12.5 mg PO DAILY 05/15/24 05/15/24 History lanolin-mineral oil lotion 1 applic topical DAILY PRN Dry Skin 05/15/24 05/15/24 History (Eucerin Original lotion) ondansetron 4 mg disintegrating 4 mg PO Q6H PRN Nausea And Vomiting 05/15/24 05/15/24 History tablet quetiapine 25 mg tablet 25 mg PO HS 05/15/24 05/15/24 History vitamin A and D 1 applic topical TID 05/15/24 05/15/24 History Patient hx anesthesia problems: none Family hx anesthesia problems: none Results Review: All pre-operative results and documents have been reviewed as part of the pre-operative evaluation. [facility] Past Medical History Medical History Alcohol abuse Bilateral leg numbness Bilateral leg weakness BMI 28.0-28.9,adult BMI 38.0-38.9,adult BMI 40.0-44.9, adult Body mass index (BMI) of 40.1 to 44.9 in adult Central stenosis of spinal canal Cervical stenosis of spinal canal Depression with anxiety Femoral artery occlusion, left Femoral artery stenosis, left Homelessness Left foot drop Lumbar spondylolysis Neural foraminal stenosis of lumbosacral spine Neuropathy Peripheral vascular disease Weight loss, abnormal Surgical History Surgical History H/O shoulder surgery H/O spinal fusion History of elbow surgery History of hand surgery Family History Family History Father Family history of premature coronary heart disease Hypertension Acute myocardial infarction Mother Family history of premature coronary heart disease Family history of Alzheimer's disease Grandparent Family history of lung cancer Family history of malignant neoplasm of uterus Sibling Acute myocardial infarction Morbid obesity Sibling Heart disease Other Family history of cardiovascular disease Social History Social History Smoking status: Current every day smoker (Cigars ~ 4/day) Tobacco type: cigars Second hand tobacco smoke e
[2024-05-20] MEDS: ceFAZolin 3 GM/D5W 100 ML 100 ML IVPB (11:15)
[2024-05-20] MEDS: BUPIVACAINE/EPINEPHRINE 0.5% 50 ML VIAL 30 ML INFILTRATE (12:22)
--- NOTE | 2024-05-20 13:58 | PM.OP ---
Procedure Note - Brief Procedure Note - Brief Date of procedure: 05/20/24 cervical myelopathy Post-op diagnosis: Same Procedure performed: C5, C6, and partial C7 laminectomies Surgeon: Ilene Caicedo MD Security Guard Supervisor: Nadeem Anesthesia: GETA Findings: Successful laminectomies without issue. Stable neuromonitoring throughout the case Estimated blood loss (mL): 100 Drains: Yes Packing: No Pathology: None sent Complications: None Condition: Stable Disposition: PACU
--- NOTE | 2024-05-20 14:10 | W.PM.PROC2 ---
Procedure Note - Detailed Date of Procedure 05/20/24 Pre-op Diagnosis cervical myelopathy Post-op Diagnosis Same Procedure Performed 1. C5, C6, and partial C7 laminectomies 2. Use of microscope for microsurgical dissection 3. Use of neuromonitoring MEP and SSEP 4. Use of C-arm for fluoroscopy Surgeon Ilene Caicedo MD Impregnating Machine Operator N[place]em [place] General Indications Mr. Zimmerman is a 59-year-old male with history of peripheral vascular disease on aspirin and Plavix with an approximately 2 year history of progressive walking difficulty to the point of being wheelchair bound as well as progressive numbness in his arms and legs and weakness in his hands. On physical exam, he does have a positive Mary's reflex bilaterally as well as weakness in the hands and lower extremities. He has decreased sensation to light touch in the arms and legs. MRI cervical spine shows severe central stenosis at C5-6 and C6-7 with spinal cord compression and T2 cord signal change. I reviewed the imaging with the patient in clinic. I have recommended surgery in the form of cervical laminectomies at C5, C6, and partial C7. Risks including bleeding, pain, infection, weakness, worsening symptoms, paralysis, CSF leak, and anesthetic complications were discussed. We discussed that the goal of surgery is to prevent worsening of current symptoms. The patient provided written informed consent to proceed. Description of Procedure The patient was brought to the operating room where endotracheal anesthesia was induced. Neuromonitoring leads were applied, and a pre-flip baseline was obtained with normal MEPs and SSEPs. The Carver headholder was applied, and the patient was transferred to the operating table in the prone position. The head was secured to the bed. All pressure points were padded. Neuromonitoring was repeated which was stable. The C-arm was used to evaluate the planned incision. The planned surgical site was prepped and draped in usual sterile fashion. Time out was conducted, and local anesthesia was injected. A 10-blade scalpel was used to make the incision. The subcutaneous tissue was dissected with the bovie until the spinous processes were encountered. Self-retaining retractors were placed. A clamp was placed on a spinous process which was confirmed to be the C4 level with the C-arm. The incision was extended inferiorly to better expose down to the inferior level. The muscles were elevated in a subperiosteal fashion to expose the laminae of C5, C6, and C7. The high-speed drill was used to create a trough through the laminae of C5 and C6. The posterior elements were elevated with a Leksell and Kerrison rongeurs, and the bone was passed off. The ligamentum flavum was elevated with the bone. Small residual pieces of ligamentum and bone were removed with the kerrison. The superior portion of C7 was removed with a kerrison. A Woodsen was used to ensure that the spinal cord felt adequately decompressed at the superior and inferior aspects of the decompression. All neuromonitoring measurements remained stable throughout the case. The muscle was approximated with 0 vicryl. The fascia was closed with 0 vicryl as well. The dermis was closed with 2-0 and 3-0 vicryl. The skin was closed with running 3-0 nylon. The drain was secured with a nylon as well. Sterile dressings were placed. The patient was then removed from the [place] headholder and returned supine. The patient was extubated and transferred to the PACU in stable condition. Billing codes: 95770, 90777 Estimated Blood Loss 100 Drains Yes Packing No Pathology None sent Complications None Condition Stable Disposition PACU [facility] Billing Surgery - Charge Forward: Surgery Billing
--- NOTE | 2024-05-20 14:22 | SUR.PHASEI ---
dr. bangura at bedside
--- NOTE | 2024-05-20 16:02 | ADMGEN ---
This patient, Alan Zimmerman, was admitted to Medical Room 342-01. Patient/family oriented to hospital policies and general routines including ID bracelet, bed and alarms, visiting hours, pain management, procedures, bathroom and other care routines, personal items, smoking policy, room service/diet, and visiting hours. Information on how to activate the Rapid Response Team has been discussed. Patient/Family are encouraged to report perceived risks to care and to ask questions if they do not understand what they are told or what they should do.
[2024-05-20] MEDS: GABAPENTIN 300 MG CAPSULE PO (17:35)
[2024-05-20] MEDS: busPIRone HCL 10 MG TABLET PO (17:35)
[2024-05-20] MEDS: ceFAZolin 2 GM/D5W 50 ML 2 GM/50 ML BAG IVPB (18:21)
[2024-05-20] MEDS: ACETAMINOPHEN 500 MG TABLET 1000 MG PO (20:45)
[2024-05-20] MEDS: QUEtiapine FUMARATE 25 MG TABLET PO (20:45)
[2024-05-21 00:25] VITALS: BP 145/75; PULSE 98; RESP 16; TEMP 37; O2SAT 93
[2024-05-21] MEDS: ceFAZolin 2 GM/D5W 50 ML 2 GM/50 ML BAG IVPB ×2 (02:30→12:25)
[2024-05-21] MEDS: ACETAMINOPHEN 500 MG TABLET 1000 MG PO ×3 (02:30→13:25)
[2024-05-21 06:00] VITALS: BP 129/88; PULSE 94; RESP 16; TEMP 36.5; O2SAT 93
[2024-05-21 08:30] VITALS: O2SAT 96
[2024-05-21] MEDS: GABAPENTIN 300 MG CAPSULE PO ×2 (08:34→13:25)
[2024-05-21] MEDS: ALPRAZolam (*CRX) 0.5 MG TABLET 1 MG PO ×2 (08:34→13:25)
[2024-05-21] MEDS: busPIRone HCL 10 MG TABLET PO ×2 (08:35→13:25)
[2024-05-21] MEDS: ATORVASTATIN 40 MG TABLET PO (08:35)
[2024-05-21] MEDS: FUROSEMIDE 20 MG TABLET PO (08:35)
[2024-05-21] MEDS: hydroCHLOROthiazide 12.5 MG CAPSULE PO (08:35)
[2024-05-21] MEDS: DOCUSATE SODIUM 100 MG CAPSULE PO (08:35)
[2024-05-21] MEDS: dilTIAZem HCL CD 240 MG CAP.24HR PO (08:35)
[2024-05-21] MEDS: CITALOPRAM HYDROBROMIDE 10 MG TABLET PO (08:35)
[2024-05-21] MEDS: CITALOPRAM HYDROBROMIDE 20 MG TABLET PO (08:35)
[2024-05-21 11:00] VITALS: BP 125/69; PULSE 82; RESP 18; TEMP 36.6; O2SAT 94
--- NOTE | 2024-05-21 11:03 | WPDANESPN ---
Anes - Prog Note Post-Op Date/Time: 05/21/24 11:03 Cardiovascular status: normal Respiratory status: normal Airway patency: baseline Mental status: baseline (drowsy) Post-Op hydration status: normal Vital Signs: Last Vital Signs Temp 36.5 C 05/21/24 06:00 Pulse 94 05/21/24 06:00 Resp 16 05/21/24 06:00 BP 129/88 05/21/24 06:00 Pulse Ox 96 05/21/24 08:30 O2 Del Method Nasal Cannula 05/21/24 08:30 O2 Flow Rate 1 05/21/24 08:30 Pain Score (VAS): 3/10 I/O: Intake & Output 05/20/24 05/21/24 05/21/24 23:59 07:59 15:59 Intake Total 50 50 240 Output Total 600 90 Balance -550 -40 240 Post-procedural complaints: none Patient Feedback: Patient satisfied with anesthetic care.
--- NOTE | 2024-05-21 13:28 | WPDNEUROSGPN ---
Progress Note: A&P Assessment and Plan (1) Cervical myelopathy: Code(s): G95.9 - Disease of spinal cord, unspecified Status: Acute (2) Status post laminectomy: Code(s): Z98.890 - Other specified postprocedural states Status: Acute Plan -Remove hemovac drain today -Discharge back to facility -Discussed wound care and activity precautions at bedside -Again discussed goals of surgery ( to prevent worsening of his myelopathic symptoms) but hope that, with time and physical therapy, he will notice improvement in his mobility in particular Subjective Date/time seen: 05/21/24 13:28 Interval history: Neck pain somewhat controlled with current medications. He has noticed some improved mobility in the arms. He ambulated with therapy. He is voiding and tolerating PO. Review of Systems Review of Systems: All systems reviewed & are unremarkable except as noted in HPI and below Exam Narrative: AOx4 Bilateral hand fraud analyst 4/5 Sensation intact to light touch Minimal serosanguinous drainage on dressing Objective Data Vital Signs Vital Signs: Vital Signs - 24 hr 05/20/24 13:58 05/20/24 14:10 05/20/24 14:25 Temperature 97.4 F L Pulse Rate 65 65 64 Respiratory Rate 12 16 16 Blood Pressure 128/76 139/79 134/86 Pulse Oximetry 93 95 96 Oxygen Delivery Simple Face Mask Simple Face Mask Simple Face Mask Oxygen Flow Rate 8 8 8 05/20/24 14:40 05/20/24 14:50 05/20/24 15:05 Temperature Pulse Rate 65 65 66 Respiratory Rate 18 19 20 Blood Pressure 143/82 H 146/85 H 158/85 H Pulse Oximetry 90 93 96 Oxygen Delivery Nasal Cannula Nasal Cannula Nasal Cannula Oxygen Flow Rate 2 4 4 05/20/24 15:20 05/20/24 15:35 05/20/24 15:50 Temperature 97.8 F Pulse Rate 65 65 68 Respiratory Rate 18 18 22 H Blood Pressure 146/85 H 152/91 H 140/85 Pulse Oximetry 92 96 98 Oxygen Delivery Nasal Cannula Nasal Cannula Nasal Cannula Oxygen Flow Rate 4 4 4 05/20/24 16:40 05/20/24 16:45 05/20/24 17:05 Temperature 95.2 F L 95.2 F L 95.1 F L Pulse Rate 66 Respiratory Rate 20 Blood Pressure 152/88 H Pulse Oximetry 98 Oxygen Delivery Oxygen Flow Rate 05/20/24 17:00 05/20/24 17:01 05/20/24 17:20 Temperature 95.1 F L 95.3 F L Pulse Rate 76 Respiratory Rate 22 H Blood Pressure 157/88 H Pulse Oximetry 93 Oxygen Delivery Oxygen Flow Rate 05/20/24 17:35 05/20/24 17:30 05/20/24 18:01 Temperature 95.8 F L 96.8 F L Pulse Rate 72 Respiratory Rate 17 Blood Pressure 149/86 H Pulse Oximetry 93 Oxygen Delivery Oxygen Flow Rate 05/20/24 18:30 05/20/24 18:30 05/20/24 16:30 Temperature 96.6 F L Pulse Rate 80 Respiratory Rate 18 Blood Pressure 155/81 H Pulse Oximetry 90 97 Oxygen Delivery Nasal Cannula Oxygen Flow Rate 1 05/20/24 20:00 05/20/24 21:00 05/20/24 20:00 Temperature 99.4 F 99.4 F Pulse Rate 96 Respiratory Rate 20 Blood Pressure 160/72 H Pulse Oximetry 99 Oxygen Delivery Room Air Oxygen Flow Rate 05/21/24 00:25 05/21/24 06:00 05/21/24 08:30 Temperature 98.6 F 97.7 F Pulse Rate 98 94 Respiratory Rate 16 16 Blood Pressure 145/75 H 129/88 Pulse Oximetry 93 93 96 Oxygen Delivery Nasal Cannula Oxygen Flow Rate 1 05/21/24 10:37 05/21/24 11:49 05/21/24 11:00 Temperature 97.8 F Pulse Rate 82 Respiratory Rate 18 Blood Pressure 125/69 Pulse Oximetry 94 Oxygen Delivery Room Air Room Air Oxygen Flow Rate Intake/Output Intake/Output: Intake & Output 05/18/24 05/19/24 05/20/24 05/21/24 23:59 23:59 23:59 23:59 Intake Total 250 500 Output Total 600 90 Balance -350 410 Meds/Results Medications: Active Medications Generic Name Dose Route Start Last Admin Trade Name Genoveva PRN Reason Stop Dose Admin Acetaminophen 1,000 mg 05/20/24 14:00 05/21/24 08:35 Acetaminophen 500 Mg Tablet PO 1,000 mg Q6H JOHANNY Administration Al Hydrox/Mg Hydrox/Simethicone 20
== END 2024-05-21 14:45 ==
LOC: ANHSURGERY 08:42 → ANH3MED 15:58
PROVIDERS: PCP Family Medicine; Visit Provider Neurological Surgery
PROC: (CPT 63015; principal; 2024-05-20 10:30)
DX: M48.02 Spinal stenosis, cervical region (principal); G99.2 Myelopathy in diseases classified elsewhere; F41.8 Other specified anxiety disorders; Z79.02 Long term (current) use of antithrombotics/antiplatelets; Z79.82 Long term (current) use of aspirin; Z98.1 Arthrodesis status; F17.290 Nicotine dependence, other tobacco product, uncomplicated
CPT/HCPCS: 63015; 97161; 97166; 99199; A9270; J0330; J0690; J1100; J1170; J2250; J2371; J2405; J2704; J3010; J7120

== ENCOUNTER 2024-10-28 08:49 | Outpatient (RCR) | payer MEDICARE, MEDICAID, SELFPAY ==
[2024-10-28 09:00] VITALS: BMI 39.2
== END 2025-01-11 08:10 | disposition home or self-care (01) ==
LOC: ANHWOC 08:49
PROVIDERS: PCP Family Medicine; Visit Provider Hospitalist
DX: S81.801A Unspecified open wound, right lower leg, initial encounter (principal); Z48.00 Encounter for change or removal of nonsurgical wound dressing
CPT/HCPCS: 99213; A9270; G0463

== ENCOUNTER 2025-06-17 14:13 | Emergency (ER) | payer MEDICARE, MEDICAID, SELFPAY ==
--- OUTSIDE RECORDS SUMMARY | 2000-03-21 04:45 | XMS_ITS | Continuity of Care Document ---
Author Organization [facility] Address [address] [place] [address] [place] [address] Phone Care Team Providers Care Training Analyst Name Role Phone Unavailable Unavailable Unavailable Advance Directives Directive Yes / No Effective Date File Name No Information Encounters Encounter Description Practice Location Reason(s) For Visit Diagnoses Date Provider Providers Copied on Encounter [facility], [address] [place] [address] [address], [place], [place], [id number], [place] tel:[phone] RVZ Marguerite Sneed No Information Feb-200 0 No Information Family History Family Member Type Diagnosis Age At Onset No Information Payers Payer name Insurance type Covered constitution party ID Authoriza ivelisse(s) [employer] [facility] [id number] Social History Type Description Quantity Date Captured Comments Sex Male Smoking Status No Information Chief Complaint And Reason For Visit No Information Reason For Referral Reason For Referral No Information History Of Present Illness Encounter Date Complaint History Of Prese nt Illness No Information Functional Status Date Functional Assessmen t No Information Instructions Date Instruction Additional Infor mation No Information Assessments Type Assessment Date No Information Patient Care Teams Name Effective Dates (start - stop) Status Members No Information
--- NOTE | ~2025-06-17 | CT_ITS ---
EXAMINATION: CTA BRAIN/CAROTID DATE: 06/17/2025 15:18 INDICATION: Right arm weakness and leg weakness. TECHNIQUE: Computed tomographic angiography (CTA) of the head and neck was performed with 100 mL Omnipaque-350 intravenous contrast. Multiplanar reconstructions and maximum intensity projection 3D-reconstructions of the carotid arteries and of the intracranial arteries were created by the technologist on a separate workstation. Precontrast CT of the head was also obtained. Automated exposure control and iterative reconstruction technique were employed.The dose-length product was 1798.41 mGy-cm. COMPARISON: None. FINDINGS: Head: No acute intracranial hemorrhage, acute infarction or abnormal extra axial fluid collection. There is mild scattered white matter hypoattenuation consistent with chronic small vessel ischemic disease. Ventricles are normal and symmetric. No mass/mass effect. No abnormally enhancing brain lesions on the postcontrast imaging. The orbits and mastoid air cells are normal. Mild mucosal thickening bilateral maxillary sinuses. Intracranial arteries Vertebral arteries are codominant. The right internal carotid artery as slightly larger than the left internal carotid artery. A chronic calcification without hemodynamically significant stenosis at the bilateral carotid siphons. There is no hemodynamically significant stenosis in the vertebral, basilar and internal carotid arteries. Both A1 and P1 segments are patent. The right P1 segment is diminutive with majority of flow to the right posterior cerebral artery likely supplied via the right internal carotid artery and a larger caliber patent right posterior communicating artery. There is also a patent left posterior commuting artery is of similar size as the left P1 segment. The A1 segment is also smaller than the right likely collateral flow supplied via a similar sized patent anterior communicating artery. There are no aneurysms identified. Cerebral arterial arborization appears symmetric. Carotid arteries: The aortic arch and the great vessels arising from the arch are normal in caliber with no dissection or hemodynamically significant stenosis. There is atherosclerotic calcification at the distalmost bilateral common carotid arteries with 60% stenosis immediately proximal to the bifurcations. There is a lso a 60% stenosis of the right carotid bulb relative to normal distal artery lumen diameter (NASCET criteria). There is a severe, likely near occlusion stenosis of the left carotid bulb relative to normal distal artery lumen diameter. Mild emphysema in the left upper lungs. Superior mediastinum is unr emarkable. Cervical soft tissues are unremarkable. Moderate to severe lower cervical predominant spondylosis with C5-C6 laminectomies. IMPRESSION: 1. 60% stenosis of the right carotid bulb relative to normal distal artery lumen diameter (NASCET criteria). 2. Severe near occlusion stenosis of the left carotid bulb relative to normal distal artery lumen diameter. 3. Additional 60% stenosis at the distalmost bilateral common carotid arteries immediately proximal to the bifurcations. 4. Normal anatomic variation to the [place] of [place]breu as detailed above. Otherwise unremarkable cerebral CT angiogram with no hemodynamically significant stenosis, aneurysm or thrombosis. 5. Normal aging brain with mild likely chronic small vessel ischemic white matter disease. No acute intracranial process or abnormally enhancing brain lesions. 6. Mild emphysema. Reviewed, dictated and finalized at location A. IMPRESSION: 1. 60% stenosis of the right carotid bulb relative to normal distal artery lume n diameter (NASCET criteria). 2. Severe near occlusion stenosis of the left carotid bulb relative to normal d istal artery lumen diameter. 3. Additional 60% stenosis at the distalmost bilateral common carotid arteries immediately proximal to the bifurcations. 4. Normal anatomic variation to the [place] of Abreu as detailed above. Otherwi se unremarkable cerebral CT angiogram with no hemodynamically significant steno sis, aneurysm or thrombosis. 5. Normal aging brain with mild likely chronic small vessel ischemic white bakari er disease. No acute intracranial process or abnormally enhancing brain lesions . 6. Mild emphysema.
--- NOTE | ~2025-06-17 | CT_ITS ---
EXAMINATION: CTA chest PE protocol DATE: 06/17/2025 15:22 CDT INDICATION: Shortness of breath TECHNIQUE: Computed tomographic angiography (CTA) of the chest was performed with 100 mL Omnipaque-350 intravenous contrast. The dose-length product was 1066.03 mGy-cm. Maximum intensity projection 3D-reconstructions of the aorta and other arteries were constructed by the technologist on a separate workstation. COMPARISON: None. FINDINGS: There is bilateral hilar and mediastinal lymphadenopathy. Study is technically adequate without evidence for pulmonary embolism. There is dependent atelectasis. No endobronchial lesions. Mild emphysema. No focal airspace consolidation to suggest pneumonia. No suspicious pulmonary nodules or masses. IMPRESSION: 1. Bilateral hilar and mediastinal lymphadenopathy, most likely reactive. 2: Mild emphysema. 3: Dependent atelectasis. Reviewed, dictated and finalized at location O.
[2025-06-17 14:11] VITALS: BP 137/75; PULSE 77; RESP 20; TEMP 36.4; O2SAT 98
--- NOTE | 2025-06-17 14:23 | ECG_ITS ---
Test Date: 2025-06-17 14:24:53 Measurements Intervals [place] Rate: 74 P: 57 [place]: 189 QRS: 29 QRSD: 118 T: 93 QT: 431 QTc: 480 Interpretive Statements SINUS RHYTHM MODERATE INTRAVENTRICULAR CONDUCTION DELAY [110+ ms QRS DURATION] ABNORMAL QRS-T ANGLE [QRS-T AXIS DIFFERENCE > 60] Compared to ECG 05/18/2024 09:04:41 First degree AV block no longer present Electronically Signed On 06-17-2025 15:23:12 CDT by Connor Weathers M.D.
[2025-06-17 14:24] VITALS: BP 137/75; PULSE 76; RESP 19; O2SAT 100
--- NOTE | 2025-06-17 14:30 | ED.GENADULT ---
HPI - General Adult General Chief complaint: Neuro Symptoms/Deficit Stated complaint: weakness& numbness BL [id number] Time Seen by Provider: 06/17/25 14:14 History of Present Illness HPI narrative: 60-year-old male presents emergency department for evaluation for multiple complaints. Patient states he has had worsening lower extremity tingling over the course of the last 5 days. Patient also does report right arm tingling. Patient reports he did have multiple medication changes over the last few days and patient had initially attributed the symptoms to that. Patient reports his Xanax was decreased, his pain medications increased, his gabapentin was increased and they started him on trazodone. Patient denies any recent illness cough colds or fevers. Patient denies any falls or injury. Patient has any prior history of CVA. Patient reports that he does not typically ambulate and uses a wheelchair for ambulation at his half-way. Patient states he is able to walk some. Related Data Home Medications ?Medication ?Instructions ?Recorded ?Confirmed ?Last Taken ?Type aspirin 81 mg capsule 81 mg PO DAILY 12/19/22 05/15/24 Unknown History Held on 05/21/24. Instructions: Resume on 05/27/24. atorvastatin 40 mg tablet 40 mg PO DAILY 12/19/22 05/15/24 Unknown History clopidogrel 75 mg tablet 75 mg PO DAILY 12/19/22 05/15/24 Unknown History Held on 05/21/24. Instructions: Resume on 05/27/24. cyanocobalamin (vitamin B-12) 2,000 mcg PO DAILY 12/19/22 05/15/24 Unknown History 1,000 mcg tablet buspirone 10 mg tablet 10 mg PO TID 06/14/23 05/15/24 Unknown History alprazolam 0.5 mg tablet (Xanax) 1 mg PO TID 05/06/24 05/15/24 Unknown History acetaminophen 325 mg tablet 650 mg PO Q4H PRN Pain 05/15/24 05/15/24 Unknown History calcium carbonate (Tums) 300 mg PO DAILY 05/15/24 05/15/24 Unknown History cholecalciferol (vitamin D3) 25 75 mcg PO DAILY 05/15/24 05/15/24 Unknown History mcg (1,000 unit) capsule (Vitamin D3) citalopram 10 mg tablet 10 mg PO DAILY 05/15/24 05/15/24 Unknown History diltiazem HCl 240 mg 240 mg PO DAILY 05/15/24 05/15/24 Unknown History capsule,extended release 24 hr furosemide 20 mg tablet 20 mg PO DAILY 05/15/24 05/15/24 Unknown History hydrochlorothiazide 12.5 mg tablet 12.5 mg PO DAILY 05/15/24 05/15/24 Unknown History lanolin-mineral oil lotion 1 applic topical DAILY PRN Dry Skin 05/15/24 05/15/24 Unknown History (Eucerin Original lotion) ondansetron 4 mg disintegrating 4 mg PO Q6H PRN Nausea And Vomiting 05/15/24 05/15/24 Unknown History tablet quetiapine 25 mg tablet 25 mg PO HS 05/15/24 05/15/24 Unknown History vitamin A and D 1 applic topical TID 05/15/24 05/15/24 Unknown History Allergies Allergy/AdvReac Type Severity Reaction Status Date / Time No Known Allergies Allergy Mild Verified 06/17/25 14:40 Review of Systems Review of Systems: All systems reviewed & are unremarkable except as noted in HPI and below PMFSH Past Medical History Medical History Neural foraminal stenosis of lumbosacral spine Central stenosis of spinal canal BMI 40.0-44.9, adult Depression with anxiety Femoral artery stenosis, left Body mass index (BMI) of 40.1 to 44.9 in adult Bilateral leg weakness Peripheral vascular disease Cervical stenosis of spinal canal Lumbar spondylolysis Left foot drop Femoral artery occlusion, left BMI 38.0-38.9,adult Homelessness Alcohol abuse Neuropathy BMI 28.0-28.9,adult Bilateral leg numbness Weight loss, abnormal Surgical History Surgical History History of hand surgery History of elbow surgery H/O shoulder surgery H/O spinal fusion Family History Family History Father Family history of premature coronary heart disease Hypertension Acute myocardial infarction Mother Family history of premature coronary heart disease Family history of Alzheimer's disease Grandparent Family history of lung cancer Family history of malignant neoplasm of uterus Sibling Acute myocardial infarction Morbid obesity Sibling Heart disease Other Family history of cardiovascular disease Social History Social History Smoking status: Current every day smoker Second hand tobacco smoke exposure: Yes Additional smoking assessment comments: 4-5 cigars a day per patient Alcohol intake: current Drinks per week: 9 Substance use: never Substance use type: does not use Do You Feel Safe in your Home?: Yes Lack of Transportation: No Lack of Food: Never True Current Housing: I Have Housing Concerned About Future Housing: No Difficulty Paying Gas/Electric Bills: No Difficulty Paying for Meds: No Currently Unemployed: No Education: High School Diploma/GED Difficulty w/ Childcare or Family Care: No Living arrangements: half-way Additional living arrangements comments: [facility] in [place]. 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 HEAD: normocephalic, atraumatic. EYES: PERRLA/EOMI, conjunctivae clear. NOSE: Normal no drainage EARS:TMS clear with good light reflex. THROAT: Pharynx clear, no exudate. NECK: Supple. No adenopathy, no masses. RESPIRATORY: Airway patent, respirations nonlabored. Clear to auscultation bilaterally, no rales, rhonchi, wheezing. CARDIOVASCULAR: Regular rate and rhythm without murmurs rubs or gallops. ABDOMINAL: Soft, nontender, nondistended, normal bowel sounds MUSCULOSKELETAL: Moves all extremities. Strength/ROM intact, No edema, No calf tenderness. NEURO: Lower extremity weakness but strong dorsum plantar flexion bilaterally. Intact to light sensation bilaterally. Cranial nerves intact, no facial droop, normal proprioception. SKIN: Warm, dry. Normal Color Course Vital Signs Vital signs: Vital Signs Temperature 97.5 F L 06/17/25 14:11 Pulse Rate 77 06/17/25 14:11 Respiratory Rate 20 06/17/25 14:11 Blood Pressure 137/75 06/17/25 14:11 Pulse Oximetry 98 06/17/25 14:11 Oxygen Delivery Room Air 06/17/25 14:11 Temperature 97.5 F L 06/17/25 18:05 Pulse Rate 77 06/17/25 18:05 Respiratory Rate 17 06/17/25 18:05 Blood Pressure 139/90 06/17/25 18:05 Pulse Oximetry 100 06/17/25 18:05 Oxygen Delivery Room Air 06/17/25 14:11 Medical Decision Making MDM Narrative Medical decision making narrative: 6-year-old male presents emergency department for evaluation for leg paresthesia. Patient states he does have some tingling of his lower extremities but patient is intact to light touch and has normal proprioception of the lower extremities. Was able to ambulate with a walker and states he is ambulating at his baseline. Patient is currently afebrile with no leukocytosis hemoglobin of 18.1. Patient has an INR 1.0. No acute abnormalities on the CMP. Patient also does complain of intermittent tingling of the right extremity and also complained of some abdominal discomfort. CTA shows lymphadenopathy with no other acute abnormality. Head CT shows chronic findings. Patient has no focal abnormality and patient's symptoms are not consistent with infarction. Patient was updated results of the workup patient was comfortable plan for discharge and close follow-up. Differential Diagnosis Differential Diagnosis: Subdural hematoma, subarachnoid hemorrhage, TIA, CVA, paresthesia Vital Signs Vital Signs: Vital Signs Temperature 97.5 F L 06/17/25 14:11 Pulse Rate 77 06/17/25 14:11 Respiratory Rate 20 06/17/25 14:11 Blood Pressure 137/75 06/17/25 14:11 Pulse Oximetry 98 06/17/25 14:11 Oxygen Delivery Room Air 06/17/25 14:11 Temperature 97.5 F L 06/17/25 18:05 Pulse Rate 77 06/17/25 18:05 Respiratory Rate 17 06/17/25 18:05 Blood Pressure 139/90 06/17/25 18:05 Pulse Oximetry 100 06/17/25 18:05 Oxygen Delivery Room Air 06/17/25 14:11 Lab Data Lab results reviewed: Yes I reviewed the patient's lab results. 06/17/25 14:34 06/17/25 14:34 Labs: Lab Results 06/17/25 06/17/25 Range/Units 14:20 14:34 WBC 7.4 (4.5-10.0) K/mm3 RBC 5.45 (4.6-6.20) M/mm3 Hgb 18.1 H D (14.0-18.0) g/dL Hct 53.6 H (42.0-52.0) % MCV 98.3 (80-100) fl MCH 33.2 (26-34) pg MCHC 33.8 (32-36) g/dl RDW 15.6 H (11.5-14.5) % Plt Count 186 (150-375) k/mm3 MPV 10.3 (7.4-10.4) fl Immature Gran % (Auto) 0.5 (0-0.5) % Neut % (Auto) 68.2 (45.5-73.1) % Lymph % (Auto) 23.4 (18.3-44.2) % [place] % (Auto) 6.7 (2.6-8.5) % Eos % (Auto) 0.8 (0-4.4) % Baso % (Auto) 0.4 (0.2-1.2) % Lymph # (Auto) 1.72 (0.9-3.2) K/mm3 [place] # (Auto) 0.5 (0.1-0.6) K/mm3 Eos # (Auto) 0.1 (0-0.3) K/mm3 Baso # (Auto) 0.0 (0.0-0.1) K/mm3 Abs Immat Gran (auto) 0.04 H (0.00-0.031) K/mm3 Absolute Neuts (auto) 5.0 (1.3-6.7) K/mm3 Absolute Nucleated RBC 0.000 (0.0-0.012) K/mm3 Nucleated RBC % 0.0 (0.0-0.2) % PT 13.7 (11.1-14.7) Seconds INR 1.0 APTT 26.0 (22.3-36.8) Seconds Sodium 136 L (137-145) mmol/L Potassium 4.0 (3.4-5.0) mmol/L Chloride 98 (98-107) mmol/L Carbon Dioxide 28 (22-30) mmol/L Anion Gap 10 (4-12) mmol/L BUN 15 (9-20) mg/dL Creatinine 0.87 (0.7-1.3) mg/dL Estim Creat Clear Calc 101 ml/min Estimated GFR > 60 (59 - ) Glucose 92 (65-110) mg/dL POC Capillary Glucose 103 (65-105) mg/dl Calcium 9.2 (8.4-10.2) mg/dL Total Bilirubin 1.1 (0.2-1.3) mg/dL AST 119 H (17-59) U/L ALT 47 (6-50) U/L Alkaline Phosphatase 52 (38-126) U/L NT-Pro-B Natriuret Pep 244 H (19.9-100) pg/mL Total Protein 8.9 H (6.3-8.2) g/dL Albumin 4.6 (3.5-5.1) g/dL Imaging Data Radiologist's impression: Impressions Chest CTA 06/17/25 15:22 IMPRESSION: 1. Bilateral hilar and mediastinal lymphadenopathy, most likely reactive. 2: Mild emphysema. 3: Dependent atelectasis. Head/Neck CTA 06/17/25 15:28 IMPRESSION: 1. 60% stenosis of the right carotid bulb relative to normal distal artery lumen diameter (NASCET criteria). 2. Severe near occlusion stenosis of the left carotid bulb relative to normal distal artery lumen diameter. 3. Additional 60% stenosis at the distalmost bilateral common carotid arteries immediately proximal to the bifurcations. 4. Normal anatomic variation to the [place] as detailed above. Otherwise unremarkable cerebral CT angiogram with no hemodynamically significant stenosis, aneurysm or thrombosis. 5. Normal aging brain with mild likely chronic small vessel ischemic white matter disease. No acute intracranial process or abnormally enhancing brain lesions. 6. Mild emphysema. Discharge Plan Discharge Clinical Impression: Paresthesia of bilateral legs Patient Disposition: NH [facility]/Asst Living Condition: Stable Instructions: Antibiotic Form, Paresthesia (ED) Additional Instructions: Have close follow-up with your primary care physician. If you have any worsening symptoms and please call or return to the emergency department. Patient Language: Kinyarwanda Prescriptions: No Action gabapentin 300 mg capsule 300 mg PO TID Qty: 90 1RF citalopram 20 mg tablet 20 mg PO DAILY Qty: 90 0RF alprazolam [Xanax] 0.5 mg tablet 1 mg PO TID buspirone 10 mg tablet 10 mg PO TID quetiapine 25 mg tablet 25 mg PO HS citalopram 10 mg tablet 10 mg PO DAILY Rx Instructions: Takes with 20 for a total of 30mg daily diltiazem HCl 240 mg capsule,extended release 24hr 240 mg PO DAILY furosemide 20 mg Tablet 20 mg PO DAILY cholecalciferol (vitamin D3) [Vitamin D3] 25 mcg (1,000 unit) Capsule 75 mcg PO DAILY hydrochlorothiazide 12.5 mg tablet 12.5 mg PO DAILY acetaminophen 325 mg Tablet 650 mg PO Q4H PRN (Reason: Pain) Tums 300 mg (750 mg) Tablet,Chewable 300 mg PO DAILY ondansetron 4 mg Tablet,Disintegrating 4 mg PO Q6H PRN (Reason: Nausea And Vomiting) Eucerin Original Lotion 1 applic TOPICAL DAILY PRN (Reason: Dry Skin) Rx Instructions: To legs for dry skin. vitamin A and D Ointment 1 applic TOPICAL TID Rx Instructions: Right posterior thigh and affected areas on buttocks. cyclobenzaprine 10 mg Tablet 10 mg PO TID PRN (Reason: Muscle Spasms) 10 Days Qty: 30 0RF oxycodone 5 mg Tablet 5 mg PO Q4H PRN (Reason: Pain Rated 4-6) 7 Days Qty: 42 0RF atorvastatin 40 mg Tablet 40 mg PO DAILY cyanocobalamin (vitamin B-12) 1,000 mcg Tablet 2,000 mcg PO DAILY clopidogrel 75 mg Tablet 75 mg PO DAILY aspirin 81 mg Capsule 81 mg PO DAILY Savella 25 mg tablet 25 mg PO BID Qty: 60 0RF buprenorphine [Butrans] 5 mcg/hour patch weekly 1 patch transdermal Q7D Qty: 4 1RF Rx Instructions: tuesdays Follow-up/Referrals: Yonathan Mcduffie MD [Primary Care Provider, Family Practice]
[2025-06-17 14:39] VITALS: PULSE 74
[2025-06-17 14:41] LABS: Hematocrit 53.6 % (42.0-52.0); Hemoglobin 18.1 g/dL (14.0-18.0); Immature Granulocyte Percent A 0.5 % (0-0.5); Lymphocytes Absolute Auto 1.72 K/mm3 (0.9-3.2); Mean Corpuscular HGB Conc 33.8 g/dl (32-36); Mean Corpuscular Hemoglobin 33.2 pg (26-34); Mean Corpuscular Volume 98.3 fl (80-100); Nucleated Red Blood Cells Absolute Auto 0.000 K/mm3 (0.0-0.012); Nucleated Red Blood Cells Perc 0.0 % (0.0-0.2); Platelet Count Result 186 k/mm3 (150-375); Red Blood Count 5.45 M/mm3 (4.6-6.20); White Blood Count 7.4 K/mm3 (4.5-10.0)
[2025-06-17 14:50] LABS: Alanine Aminotransferase 47 U/L (6-50); Albumin Level 4.6 g/dL (3.5-5.1); Alkaline Phosphatase 52 U/L (38-126); Anion Gap 10 mmol/L (4-12); Aspartate Amino Transferase 119 U/L (17-59); Bilirubin,Total 1.1 mg/dL (0.2-1.3); Blood Urea Nitrogen 15 mg/dL (9-20); Calcium 9.2 mg/dL (8.4-10.2); Carbon Dioxide 28 mmol/L (22-30); Chloride 98 mmol/L (98-107); Estimated CRCL calculation 101 ml/min; Estimated Glomerular Filt Rate > 60; Glucose 92 mg/dL (65-110); Potassium 4.0 mmol/L (3.4-5.0); Sodium 136 mmol/L (137-145); Total Protein 8.9 g/dL (6.3-8.2)
[2025-06-17 14:53] LABS: INR 1.0; Prothrombin Time 13.7 Seconds (11.1-14.7)
[2025-06-17 14:54] LABS: Partial Thromboplastin Time 26.0 Seconds (22.3-36.8)
[2025-06-17 15:32] LABS: NT Pro B Type Natriuretic Pept 244 pg/mL (19.9-100)
[2025-06-17 16:40] VITALS: BP 167/85; PULSE 68; RESP 19; O2SAT 100
[2025-06-17] MEDS: HYDROcodone/acetaminophen (*CRX) 5-325 MG TABLET 1 TAB PO (16:40)
[2025-06-17] MEDS: KETOROLAC 15 MG/ML VIAL (*BKC) IV PUSH (16:40)
--- OUTSIDE RECORDS SUMMARY | 2025-06-17 17:01 | XMS_ITS | Clinical Summary ---
Author Organization [facility] Address [address] [place] [id number] Care Team Providers Care Nut And Bolt Assembler Name Role Phone Yonathan Mcduffie MD Primary Care Provider [phone] Social History Tobacco Use Types Packs/Day Years Used Date Smoking Tobacco: Never Assessed Sex and Gender Information Value Date Recorded Sex Assigned at Not on file Legal Sex Male 11:44 AM CDT Gender Identity Not on file Sexual Orientation Not on file Plan of Treatment Health Maintenance Due Date Last Done Comments Colorectal Cancer Screening Colonoscopy (10 Years) 1965 Annual Physical 1968 Hepatitis C 1983 DTaP, Tdap and Td Vaccines ( 1 - Tdap) 1984 Pneumococcal Vaccine: 50+ Ye ars (1 of 1 - PCV) 2015 Zoster Vaccines (1 of 2) 2015 COVID-19 Vaccine (1 - 2023-2 5 season) 2025 RSV Immunization or 60+ Years (1 - 1-dose 75+ series) 2040 Meningococcal B Vaccine Aged Out No l onger eligible based on patient's age to complete this topic Meningococcal Vaccine Aged Out No panchito constantino eligible based on patient's age to complete this topic RSV Immunizations Under 20 Months Aged Out No longer eligible based on patient's age to complete this topic Care Teams Nut And Bolt Assembler Relationship Specialty Start Date End Date Yonathan Mcduffie MD [address] [place] [address] PCP - General FAMILY PRACTICE 03/17/20
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
[2025-06-17 18:05] VITALS: BP 139/90; PULSE 77; RESP 17; TEMP 36.4; O2SAT 100
== END 2025-06-17 18:07 ==
PROVIDERS: Emergency Provider Emergency Medicine; PCP Family Medicine
DX: R20.2 Paresthesia of skin (principal); I65.23 Occlusion and stenosis of bilateral carotid arteries; F17.290 Nicotine dependence, other tobacco product, uncomplicated
CPT/HCPCS: 36415; 70496; 70498; 71275; 80053; 82948; 83880; 85025; 85610; 85730; 93005; 96374; 99284; A9270; J1885; Q9967

== ENCOUNTER 2025-09-10 07:42 | Outpatient (CLI) | payer MEDICARE, MEDICAID, SELFPAY ==
--- NOTE | ~2025-09-10 | MR_ITS ---
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 FINDINGS: Degenerative changes are present throughout the intervertebral disc spaces and posterior elements in the lumbar spine. Patient has status post bilateral posterior transpedicular fusion L3-5. These levels are somewhat obscured due to susceptibility artifact associated with hardware. No gross hardware failure or malalignment identified. CT examination would provide better evaluation for the hardware and bony matrix contiguous with the hardware. No acute or aggressive bony or soft tissue process seen. The conus tapers normally at the level of L1. Level specific findings as follows: T12-L1: Moderate degenerative changes but no spinal canal stenosis or discrete disc protrusion. Mild to moderate right and mild left-sided neural foraminal narrowing. L1-2: Moderately severe degenerative disc and facet changes with mild stenosis developing in the lateral recesses. No spinal canal stenosis or discrete disc protrusion. Moderately severe bilateral neural foraminal narrowing. L2-3: Moderately severe degenerative disc and facet changes with no spinal canal stenosis or discrete disc protrusion. Moderately severe bilateral neural foraminal narrowing. Stenosis developing in both lateral recesses. L3-4: Fused with no spinal canal stenosis or severe neural foraminal narrowing seen. L4-5: Fused with no spinal canal stenosis or severe neural foraminal narrowing identified. L5-S1: No spinal canal stenosis or discrete disc protrusion. Possibly severe neural foraminal narrowing, similar in appearance to the September 2023 of exam. IMPRESSION: 1. No significant progression in multilevel degenerative and surgical changes compared to October 02, 2023. See level specific findings as detailed above. 2. Correlate with follow-up contrast enhanced lumbar spine MRI sequences for complete evaluation at levels of surgical changes. Reviewed, dictated and finalized at location A. NING AND DEVELOPMENT COORDINATOR IMPRESSION: 1. No significant progression in multilevel degenerative and surgical changes c ompared to October 02, 2023. See level specific findings as detailed above. 2. Correlate with follow-up contrast enhanced lumbar spine MRI sequences for co mplete evaluation at levels of surgical changes.
--- NOTE | ~2025-09-10 | MR_ITS ---
EXAMINATION: MR cervical spine wo con DATE: 09/10/2025 08:45 INDICATION: Spinal stenosis TECHNIQUE: Magnetic resonance imaging (MRI) of the cervical spine was performed without intravenous contrast. Sequences included sagittal T2-weighted FSE, sagittal T2-weighted FS FSE, sagittal T1-weighted FSE, axial MERGE, and axial T2-weighted FSE. COMPARISON: None FINDINGS: Degenerative changes are present throughout the cervical spine involving disc spaces, uncovertebral joints and pedicles. Hyperintense T2-weighted signal change present within the spinal cord at the levels of C6 and C7. Visualized portions of the posterior fossa demonstrate mild hyperintense T2- weighted signal within the pontine portion of the brainstem. Level specific findings as follows: C2-3: Moderately severe degenerative disc changes with no spinal canal stenosis or discrete disc protrusion. Moderate right and mild left-sided neural foraminal narrowing. C3-4: Moderately severe posterior disc osteophyte complex with mild spinal canal stenosis. Mild deformity of the spinal cord but no cord signal changes. Moderately severe bilateral neural foraminal narrowing, left worse than right. No disc herniation. C4-5: Moderately severe posterior disc osteophyte complex or spondylosis with no discrete disc protrusion or spinal canal stenosis. Moderately severe bilateral neural foraminal narrowing. C5-6: Moderately severe posterior disc bulging/disc osteophyte complex but no discrete disc protrusion. Borderline spinal canal stenosis with the AP diameter of the canal measuring 8.3 mm. Moderately severe bilateral neural foraminal narrowing left worse than right. C6-7: Mild spinal canal stenosis with the AP diameter of the spinal canal measuring approximately 7 mm. Cord signal changes are present at the C6 and C7 levels. See image 7 series 3. No discrete disc protrusion. Moderate to severe bilateral neural foraminal narrowing. C7-T1: Approximately 3 mm anterolisthesis C7 on T1. Mild spinal canal stenosis also present at this level with the AP diameter of the canal measuring approximately 6.7 mm. No discrete disc protrusion. Moderately severe left and mild to moderate right-sided neural foraminal narrowing. IMPRESSION: 1. Spinal cord signal changes at the C6-7 levels concerning for developing myelopathic changes within the cervical cord. Correlation with follow-up contrast-enhanced sequences of the cervical spine suggested for complete evaluation. 2. Advanced multilevel degenerative changes including multiple levels of mild or borderline spinal canal stenosis. 3. Mild hyperintense T2-weighted signal changes in the pontine portion of the brainstem of uncertain significance. Consider correlation with dedicated brain MRI. Reviewed, dictated and finalized at location A. [employer] SCIENCE TEACHER IMPRESSION: 1. Spinal cord signal changes at the C6-7 levels concerning for developing myel opathic changes within the cervical cord. Correlation with follow-up contrast-e nhanced sequences of the cervical spine suggested for complete evaluation. 2. Advanced multilevel degenerative changes including multiple levels of mild o r borderline spinal canal stenosis. 3. Mild hyperintense T2-weighted signal changes in the pontine portion of the b rainstem of uncertain significance. Consider correlation with dedicated brain M RI.
--- NOTE | ~2025-09-10 | MR_ITS ---
EXAMINATION: MR thoracic spine wo con DATE: 09/10/2025 08:56 INDICATION: Pain TECHNIQUE: Magnetic resonance imaging (MRI) of the thoracic spine was performed without intravenous contrast. Sagittal localizer T1-weighted FSE of the cervical spine was obtained. Thoracic spine sequences included sagittal T2-weighted FSE, sagittal T1-weighted FSE, sagittal T2-weighted FS FSE, and axial T2-weighted FSE. COMPARISON: None FINDINGS: Moderate degenerative disc changes present throughout the thoracic spine with no large disc herniation or spinal canal stenosis. No acute or aggressive bony or soft tissue process seen within the thoracic spine. Cord signal appears normal with no discrete medullary cord lesions or gross myelopathic changes within the thoracic spine. On sagittal images, severe degenerative changes present in the lower cervical spine. IMPRESSION: 1. Moderately severe multilevel degenerative changes in the thoracic spine with no large disc herniation or spinal canal stenosis. 2. Normal cord signal within the thoracic spine. 3. Severe degenerative changes in the cervical spine. See also report for MRI of the cervical spine same date. Reviewed, dictated and finalized at location A. IST IMPRESSION: 1. Moderately severe multilevel degenerative changes in the thoracic spine with no large disc herniation or spinal canal stenosis. 2. Normal cord signal within the thoracic spine. 3. Severe degenerative changes in the cervical spine. See also report for MRI o f the cervical spine same date.
--- NOTE | ~2025-09-10 | MR_ITS ---
EXAM/PROCEDURE: MR brain/brain stem wo/w con HISTORY: R51.9 - Headache, unspecified COMPARISON: None available. TECHNIQUE: Pre and postcontrast enhanced multiplanar brain MRI performed. FINDINGS: Numerous T2 weighted hyperintense white matter lesions are present throughout both cerebral hemispheres. These lesions are fairly well- circumscribed and all are less than than 10 mm in size. There are too numerous to count. Some are oriented perpendicular to the lateral ventricles. These lesi ons do not have typical appearance for chronic microvascular ischemic appearing change. Mild chronic microvascular ischemic appearing white matter changes also noted. None of these lesions enhance and there is no associated restricted diffusion. No obvious mass effect. Vascular flow voids patent at the skull base. No evidence of bleed on gradient echo sequences. Francis-white signal pattern is preserved. Minimal hyperintense T2-weighted signal changes also present in the pontine portion of the brainstem. The brainstem and cerebellum otherwise appear normal. IMPRESSION: 1. No gross intracranial mass effect, hemorrhage or acute ischemic event. No suspiciously enhancing lesions or post enhancement pathology noncontrast enhanced series. 2. Numerous bilateral small fairly well circumscribed T2-weighted hyperintense lesions in both cerebral hemispheres do not have characteristic appearance of benign chronic ischemic changes with several oriented perpendicular to the ventricles; query if patient has history of demyelinating process such as multiple sclerosis. Findings could also represent sequelae of previous inflammatory/infectious process, or rarely, malignant lesions with no enhancement pattern. 3. Mild underlying chronic right breast ischemic changes. Reviewed, dictated and finalized at location A. 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 No gross intracranial mass effect, hemorrhage or acute ischemic event. No [place] spiciously enhancing lesions or post enhancement pathology noncontrast enhanced series. 2. Numerous bilateral small fairly well circumscribed T2-weighted hyperintense lesions in both cerebral hemispheres do not have characteristic appearance of b enign chronic ischemic changes with several oriented perpendicular to the ventr icles; query if patient has history of demyelinating process such as multiple s clerosis. Findings could also represent sequelae of previous inflammatory/infec tious process, or rarely, malignant lesions with no enhancement pattern. 3. Mild underlying chronic right breast ischemic changes.
--- OUTSIDE RECORDS SUMMARY | 2025-09-10 07:47 | XMS_ITS | Clinical Summary ---
Author Organization [facility] Address [address] [place] [address] Care Team Providers Care Pilot Can Router Name Role Phone Yudith Prasad MD Unavailable Yonathan Mcduffie MD Unavailable [phone] Yonathan Mcduffie MD Primary Care Provider [phone] Allergies No known active allergies Medications calcium carbonate (TUMS) 500 mg (200 mg elemental) chewable tablet Take 2 tablet/chew tab (1,000 mg total) by mouth daily as needed for heartburn or indigestion 07/16/20 Active cholecalciferol (VITAMIN D-3) 2000 unit capsule Take 1 capsule (2,000 Units total) by mouth daily 30 capsule 07/17/20 Active clopidogreL (PLAVIX) 75 mg tabletIndications:P eripheral Arterial Thromboembolism Prevention Take 1 tablet (75 mg total) by mouth daily 30 tablet 07/17/20 Active cyanocobalamin (Vitamin B-12) 2,000 mcg tabletIndications:P revention of Vitamin B12 Deficiency Take 1 tablet (2,000 mcg total) by mouth daily 30 tablet 07/17/20 Active folic acid (FOLVITE) 1 mg tablet Take 1 tablet (1 mg total) by mouth daily 30 tablet 07/17/20 Active nicotine (NICODERM CQ) 7 mgIndications:Nicot ine D[facility] Place 1 patch on the skin daily 30 patch 07/17/20 Active Additional Information Patient not taking.Reported on 08/30/2025 polyethylene glycol (MIRALAX) 17 gram packetIndications:c onstipation,opioid induced constipation Take 1 packet (17 g total) by mouth daily as needed for constipation 30 packet 07/17/20 22 Active Additional Information Patient not taking.Reported on 08/30/2025 aspirin 81 mg chewable tabletIndications:p revention of [...] (25 mg total) by mouth nightly Active sertraline (ZOLOFT) 100 mg tablet 08/24/20 25 Active amLODIPine (NORVASC) 5 mg tablet 08/27/20 25 Active sertraline (ZOLOFT) 50 mg tablet 08/03/20 25 Active hydroCHLOROthiazide 12.5 mg tablet Take 1 tablet/capsule (12.5 mg total) by mouth 05/15/20 24 Active coenzyme Q10 30 mg capsule Take 1 capsule (30 mg total) by mouth 3 (three) times a day Active traZODone (DESYREL) 50 mg tablet 08/07/20 25 Active tiZANidine (ZANAFLEX) 2 mg tablet 08/04/20 25 Active acetaminophen (TYLENOL) 325 mg tablet Take 2 tablets (650 mg total) by mouth 05/15/20 24 Active Active Problems Problem Noted Date Diagnosed Date Stenosis of left carotid artery 08/31/2025 Assessment & Plan (08/31/2025 10:41 AM LOG DRIVER): Incidental finding on previous CT and [facility]. No recent stroke symptoms. Continue aspirin statin therapy and follow-up in the next few weeks with a carotid duplex. Left groin mass 06/18/2023 Assessment & Plan [...] results Mixed hyperlipidemia 02/12/2023 Assessment & Plan (08/31/2025 10:37 AM LOG DRIVER): Stable and controlled. Continue Lipitor Assessment & Plan (01/23/2024 7:39 AM CDT): Stable continue Lipitor 40 mg. Assessment & Plan (08/07/2023 2:08 PM LOG DRIVER): Stable continue Lipitor 40 mg. Assessment & Plan (02/12/2023 7:39 AM CDT): Stable continue Lipitor 40 mg. Colitis 10/20/2022 Acute cystitis without hematuria 10/20/2022 Primary hypertension 10/20/2022 Assessment & Plan (08/31/2025 10:34 AM LOG DRIVER): Stable and controlled. Continue amlodipine Assessment & Plan (01/23/2024 7:39 AM CDT): Stable continue diltiazem Assessment & Plan (08/07/2023 2:08 PM LOG DRIVER): Stable continue diltiazem 240 mg. Assessment & Plan (02/12/2023 7:39 AM CDT): Stable continue diltiazem 240 mg. Folic acid deficiency 07/13/2022 B12 deficiency 07/13/2022 Ischemic leg pain 07/03/2022 Limb ischemia 07/02/2022 Overview (07/03/2022): Added automatically from request for surgery [id number] Suicidal behavior without attempted self-injury 01/11/2021 Alcohol [...] -Continue vitamin supplementation -Patient is interested in [facility] substance use rehab for alcohol use; to assist with resources Assessment & Plan [...] PAD (peripheral artery disease) Assessment & Plan (08/31/2025 10:40 AM LOG DRIVER): Left fem PT bypass graft remains patent on duplex triphasic and biphasic waveforms with normal ABIs. Continues to have symptoms of neuropathy otherwise no symptoms of ischemic rest pain or claudication symptoms. Continue ambulating as much as possible would recommend physical therapy referral as patient has become deconditioned. Continue aspirin statin therapy and follow-up in 6 months for routine surveillance with lower extremity arterial duplex with ABIs Assessment & Plan (01/23/2024 7:39 AM CDT): Patent left common femoral artery to posterior tibial bypass. Overall stable from a vascular standpoint. Frustrated with leg weakness. Undergoing evaluation of his lower back. Continue ASA Plavix and statin therapy. Follow up in 6 months with repeat noninvasives. Assessment & Plan (08/07/2023 2:08 PM LOG DRIVER): CT scan reviewed, no evidence of infection. [...] patient is on CIWA and receiving Ativan Encounters Date Type Department Care Team Description 08/31/2025 Telephone [facility] Vascular and Vein Surgery [address] [place] [address] [place] [phone] Natalia Sanchez MA 08/31/2025 Orders Only [facility] Vascular and Vein Surgery [address] [place] [address] [place] [phone] Yudith Prasad MD Bilateral carotid artery stenosis (Primary Dx); Atherosclerosis of [place] artery of left lower extremity with intermittent claudication 08/30/2025 1:30 PM LOG DRIVER Office Visit [facility] Vascular [facility] Vein Surgery [address] [place] [address] [address] [place] [address] Lianet Wong NP Primary hypertension (Primary Dx); Mixed hyperlipidemia; PAD (peripheral artery disease); Stenosis of left carotid artery 08/30/2025 12:50 PM LOG DRIVER - 08/30/2025 11:59 PM LOG DRIVER Hospital Encounter [facility] Medical Office Building [address] [place] [address] [address] [place] [address] PAD (peripheral artery disease) Discharge Disposition: Discharge to home or self care 08/30/2025 12:45 PM LOG DRIVER - 08/30/2025 11:59 PM LOG DRIVER Hospital Encounter [facility] Medical Office [facility] [address] [place] [address] [address] [place] [address] PAD (peripheral artery disease) Discharge Disposition: Discharge to home or self care 07/12/2025 Telephone [facility] Medical [facility] Vascular and Vein Surgery [address] [place] [address] [address] [place] [address] Natalia Sanchez MA 07/07/[address] [facility] Vascular and Vein Surgery [address] [place] [address] [address] [place] [address] Yudith Prasad MD 06/17/2025 3:10 PM CDT - 06/17/2025 11:59 PM CDT Hospital Encounter [facility] [employer] [address] [facility] [place] [address] Discharge Disposition: Discharge to home or self care 06/17/2025 3:05 PM CDT - 06/17/2025 11:59 PM CDT Hospital Encounter [facility] [employer] [address] [facility] [place] [address] Discharge Disposition: Discharge to home or self care from Last 3 Months Surgical History Surgery Date Site/Laterality Comments BACK [...] week 10/22/2022 How often do you attend scientology or confucianist serv ices? Never 10/22/2022 Do you belong to any clubs o r organizations such as scientology groups, unions, fraternal or athletic groups, or [...] medical care, and heating? Somewhat hard 10/22/2022 [facility] - Occupational Stress [...] place to sleep or slept in a halfway (including now)? 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 Not on file Not on file Not on file Last Filed Vital Signs Vital Sign Reading Time Taken Comments Blood Pressure 144/76 08/30/2025 2:01 PM LOG DRIVER Pulse 73 08/30/2025 2:01 PM LOG DRIVER Temperature 36.8 C (98.2 F) 02/05/2023 6:42 PM CDT Respiratory Rate 19 02/06/2023 2:00 AM CDT Oxygen Saturation 93% 02/06/2023 2:00 AM CDT Inhaled Oxygen Concentration - - Weight 115.7 kg (255 lb) 08/30/2025 2:01 PM LOG DRIVER Height 175.3 cm (5' 9) 08/30/2025 2:01 PM LOG DRIVER Body Mass Index 37.66 08/30/2025 2:01 PM LOG DRIVER Plan of Treatment Health Maintenance Due Date [...] Completed 01/12/2021 Medical Devices Implanted Type Area Process Engineering Manager Device Identifier Shelf Expiration Date Model / Serial / Lot [employer] [place] 6mm 80cm 60cm Removable Ring Stretch Thin Wall Graft [id number] - [id number] - [id number] Implanted:Qty: 1 on 07/05/2022 by Yudith Prasad MD at [facility] Graft Left: Leg Wl [employer] [id number] 11/27/2025 [id number] / [id number] / Cha [employer] Device Clsr Perclose Prostyle Sut-Mediatd Closure-Repair Sys [id number] - [id number] Implanted:Qty: 1 on 07/03/2022 by Yudith Prasad MD at [facility] [employer] 03/22/2024 [id number] / / [id number] Procedures Procedure Name Priority Date/Time Associated Diagnosis Comments US KEATON Schedule Routine, Read Routine (OP Routine) 08/30/2025 1:45 PM LOG DRIVER PAD (peripheral artery disease) US ARTERIAL DUPLEX LOWER EXTREMITY LEFT LIMITED Schedule Routine, Read Routine (OP Routine) 08/30/2025 1:45 PM LOG DRIVER PAD (peripheral artery disease) CT BODY OUTSIDE REFERENCE Routine 06/17/2025 3:[address] OUTSIDE REFERENCE Routine 06/17/2025 3:05 PM CDT HEPATITIS PANEL, ACUTE Routine 01/12/2021 4:25 PM CDT from Last 3 Months or Most Recently Relevant to Health Maintenance Results * US Arterial Duplex Lower Extremity Left Limited (08/30/2025 1:45 PM LOG DRIVER) Anatomical Region Laterality Modality Vascular Left Ultrasound 08/30/2025 1:05 PM LOG DRIVER Narrative 09/01/2025 6:05 PM LOG DRIVER Lower Extremity Arterial Duplex Report Patient Name: STEFANY BRADSHAW F : 1965 (60y 4m) Sex: M Study Date: 08/30/2025 01:05:17 PM Ht(Inch): Wt(Lb): BSA: Microsoft Bi Developer: CHANEL DIEHL Provider: YUDITH PRASAD Quality: Adequate Ref Provider: YUDITH PRASAD PROCEDURES: Arterial Report: A non-invasive vascular imaging study of the left lower extremity arteries and bypass graft was performed using B-mode ultrasound, color flow, and spectral Doppler. INDICATIONS: I73.9 Peripheral vascular disease, unspecified. HISTORY: S/P LT SLITTER OPERATOR-FIELD APPRAISER BPG 07/05/2022. COMPARISONS: The previous exam was completed on 09/09/2024. MEASUREMENTS: Left Value Lt SLITTER OPERATOR Prx PSV 56.00 cm/sec GRAFTS: Left Value Location SLITTER OPERATOR-FIELD APPRAISER BPG Lt Anast Prx PSV 147.78 cm/sec Lt BPG Prx PSV 71.46 cm/sec Lt BPG Mid PSV 43.76 cm/sec Lt BPG Dst PSV 65.88 cm/sec Lt Anast Dst PSV 70.05 cm/sec Lt BPG Outflow PSV 50.00 cm/sec FINDINGS: Bypass Graft: The bypass graft is located in the left leg. Patent lower extremity bypass graft with no evidence of stenosis. CONCLUSION: 1. The arterial bypass graft is patent with no evidence of stenosis. ATTESTATION: I have reviewed and interpreted the pertinent images and measurements of this study. I attest to the conclusions in the final report that is provided above. Electronically Signed By: Nadeem Prasad MD 09/01/2025 5:34:08 PM LOG DRIVER Procedure Note Nadeem Prasad MD - 09/01/2025 Lower Extremity Arterial Duplex Report Patient Name: STEFANY BRADSHAW F : 1965 (60y 4m) Sex: M Study Date: 08/30/2025 01:05:17 PM Ht(Inch): Wt(Lb): BSA: [employer] Bi Developer: CHANEL DIEHL Provider: YUDITH PRASAD Quality: Adequate Ref Provider: YUDITH PRASAD PROCEDURES: Arterial Report: A non-invasive vascular imaging study of the left lowerextremity arteries and bypass graft was performed using B-mode ultrasound, colorflow, and spectral Doppler. INDICATIONS: I73.9 Peripheral vascular disease, unspecified. HISTORY: S/P LT SLITTER OPERATOR-FIELD APPRAISER BPG 07/05/2022. COMPARISONS: The previous exam was completed on 09/09/2024. MEASUREMENTS: Left Value Lt SLITTER OPERATOR Prx PSV 56.00 cm/sec GRAFTS: Left Value Location SLITTER OPERATOR-FIELD APPRAISER BPG Lt Anast Prx PSV 147.78 cm/sec Lt BPG Prx PSV 71.46 cm/sec Lt BPG Mid PSV 43.76 cm/sec Lt BPG Dst PSV 65.88 cm/sec Lt Anast Dst PSV 70.05 cm/sec Lt BPG Outflow PSV 50.00 cm/sec FINDINGS: Bypass Graft: The bypass graft is located in the left leg. Patent lowerextremity bypass graft with no evidence of stenosis. CONCLUSION: 1. The arterial bypass graft is patent with no evidence of stenosis. ATTESTATION: I have reviewed and interpreted the pertinent images and measurements ofthis study. I attest to the conclusions in the final report that is provided above. Electronically Signed By: Nadeem Prasad MD 09/01/2025 5:34:08 PM LOG DRIVER us Yudith Prasad MD IM US PROCEDURES Final Result * US KEATON (08/30/2025 1:45 PM LOG DRIVER) Anatomical Region Laterality Modality Vascular N/A Ultrasound 08/30/2025 1:04 PM LOG DRIVER Narrative 09/01/2025 6:05 PM LOG DRIVER Lower Extremity Arterial Doppler Report Patient Name: STEFANY BRADSHAW F : 1965 Study Date: 08/30/2025 1:04:00 PM Sex: M [employer] Bi Developer: Chanel Diehl RN/RVT Ref Provider: YUDITH PRASAD Quality: Adequate Order Provider: YUDITH PRASAD PROCEDURES: Arterial Report: Ankle - Brachial Index Doppler exam. INDICATIONS: I73.9 Peripheral vascular disease, unspecified. HISTORY: S/P LT SLITTER OPERATOR-FIELD APPRAISER BPG 07/05/2022. COMPARISONS: The previous exam was completed on 09/09/24 RT PT/DP .90/.92 LT PT/ DP 1.16/ 1.07. MEASUREMENTS: Right Value Left Value Rt Brachial Pressure 137 mmHg Lt Brachial Pressure 142 mmHg Rt FIELD APPRAISER Pressure 155 mmHg Lt FIELD APPRAISER Pressure 167 mmHg Rt DPA Pressure 139 mmHg Lt DPA Pressure 172 mmHg Rt PT KEATON Resting 1.09 Lt PT KEATON Resting 1.18 Rt DP KEATON Resting 0.98 Lt DP KEATON Resting 1.21 FINDINGS: Right Posterior Tibial Artery Analysis: The posterior tibial waveform is triphasic. Right Dorsalis Pedis Artery Analysis: The dorsalis pedis waveform is biphasic. Left Posterior Tibial Artery Analysis: The posterior tibial waveform is triphasic. Left Dorsalis Pedis Artery Analysis: The dorsalis pedis waveform is triphasic. - CONCLUSIONS: 1. Ankle-brachial index of 0.9-1.3 is within normal limits in the bilateral lower extremities. ATTESTATION: I have reviewed and interpreted the pertinent images and measurements of this study. I attest to the conclusions in the final report that is provided above. Electronically Signed By: Nadeem Prasad MD 09/01/2025 5:33:45 PM LOG DRIVER Procedure Note Nadeem Prasad MD - 09/01/2025 Lower Extremity Arterial Doppler Report Patient Name: STEFANY BRADSHAW F : 1965 Study Date: 08/30/2025 1:04:00 PM Sex: M [employer] Bi Developer: Chanel Diehl RN/RVT Ref Provider: YUDITH PRASAD Quality: Adequate Order Provider: YUDITH PRASAD PROCEDURES: Arterial Report: Ankle - Brachial Index Doppler exam. INDICATIONS: I73.9 Peripheral vascular disease, unspecified. HISTORY: S/P LT SLITTER OPERATOR-FIELD APPRAISER BPG 07/05/2022. COMPARISONS: The previous exam was completed on 09/09/24 RT PT/DP .90/.92 LT PT/ DP1.16/ 1.07. MEASUREMENTS: Right Value Left Value Rt Brachial Pressure 137 mmHg Lt Brachial Pressure 142 mmHg Rt FIELD APPRAISER Pressure 155 mmHg Lt FIELD APPRAISER Pressure 167 mmHg Rt DPA Pressure 139 mmHg Lt DPA Pressure 172 mmHg Rt PT KEATON Resting 1.09 Lt PT KEATON Resting 1.18 Rt DP KEATON Resting 0.98 Lt DP KEATON Resting 1.21 FINDINGS: Right Posterior Tibial Artery Analysis: The posterior tibial waveform is triphasic. Right Dorsalis Pedis Artery Analysis: The dorsalis pedis waveform is biphasic. Left Posterior Tibial Artery Analysis: The posterior tibial waveform is triphasic. Left Dorsalis Pedis Artery Analysis: The dorsalis pedis waveform is triphasic. - CONCLUSIONS: 1. Ankle-brachial index of 0.9-1.3 is within normal limits in thebilateral lower extremities. ATTESTATION: I have reviewed and interpreted the pertinent images and measurements ofthis study. I attest to the conclusions in the final report that is provided above. Electronically Signed By: Nadeem Prasad MD 09/01/2025 5:33:45 PM LOG DRIVER Yudith Prasad MD IMG US PROCEDURES Final Result * CT Body Outside Reference (06/17/2025 3:10 PM CDT) Narrative [email or web address] - 07/13/2025 8:58 AM CDT This order has been auto-finalized and does not contain a result. us Provider Transcribed Order IMG CT PROCEDURES Fin al Result Performing Organization Address [facility] Co de Phone Number [email or web address] * Neuro CT Outside Reference (06/17/2025 3:05 PM CDT) Narrative [email or web address] - 07/13/2025 8:58 AM CDT This order has been auto-finalized and does not contain a result. us Provider Transcribed Order IMG CT PROCEDURES Fin al Result Performing Organization Address [facility] Co de Phone Number [email or web address] * Hepatitis panel, acute (01/12/2021 4:25 PM CDT) Hep A IgM Nonreactive Nonreactive [facility] Comment: Interpretive Data: If Hep A IgM Ab is reported as Equivocal, a new sample should be drawn in two weeks for testing. Current interpretive data was last revised on 19. Hep B core IgM Nonreactive Nonreactive [facility] Comment: Interpretive Data If HepB Core IgM Ab is reported as Equivocal, a new sample should be drawn in two weeks for testing. Current interpretive data was last revised on 19. Hep C Ab Nonreactive Nonreactive [facility] Comment:Antibodies to HCV no t detected. Does NOT exclude the possibility of recent exposure to HCV. HepBsAg Nonreactive Nonreactive [facility] Blood specimen (specimen) 01/12/2021 4:25 PM CDT 01/12/2021 6:02 PM CDT us Coretta Clark MD LAB MICROBIOLOGY - GENERAL OR DERABLES Final Result [facility] Department [place] [address] from Last 3 Months or Most Recently Relevant to Health Maintenance Insurance MEDICARE [facility] Advance Directives For more information, please contact: [phone] * Full Code (Latest Code Status on File) Date Activated Date Inactivated Comments 10/21/2022 3:02 AM 10/22/2022 6:29 PM * Full Code Date Activated Date Inactivated Comments 07/03/2022 10:16 AM 07/16/2022 7:00 PM * Full Code Date Activated Date Inactivated Comments 01/11/2021 6:20 PM 01/14/2021 5:36 PM Care Teams Pilot Can Router Relationship Specialty Start Date End Date Yonathan Mcduffie MD [address] [place] [address] [place] [id number] PCP - General Family Medicine 07/18/22 Yudith Prasad MD [address] [place] [address] [place] [address] Consulting Physician Vascular Surgery 07/16/22 Yonathan Mcduffie MD [address] [place] [address] [place] [address] Referring Physician Family Medicine 07/16/22
--- OUTSIDE RECORDS SUMMARY | 2025-09-10 07:47 | XMS_ITS | Clinical Summary ---
Author Organization [facility] Address [address] [place] [id number] Care Team Providers Care Manager Shell Name Role Phone Yonathan Mcduffie MD Primary Care Provider [phone] Social History Tobacco Use Types Packs/Day Years [...] of 2) 2015 COVID-19 Vaccine (1 - 2024-2 6 season) 2025 Influenza Adult (#1) 2025 RSV Immunization or 60+ Years (1 - 1-dose 75+ series) 2040 Hepatitis A Vaccines Aged Out No long er eligible based on patient's age to complete this topic Meningococcal B Vaccine Aged Out No l onger eligible based on patient's age to complete this topic Meningococcal Vaccine Aged Out No panchito constantino eligible based on patient's age to complete this topic RSV Immunizations Under 20 Months Aged Out No longer eligible based on patient's age to complete this topic Care Teams Manager Shell Relationship Specialty Start Date End Date Yonathan Mcduffie MD [address] [place] [address] PCP - General FAMILY PRACTICE 03/17/20
== END 2025-09-10 07:43 | disposition home or self-care (01) ==
PROVIDERS: PCP Family Medicine; Visit Provider Nurse Practitioner Adult Health
DX: M51.34 Other intervertebral disc degeneration, thoracic region (principal); M43.06 Spondylolysis, lumbar region; M51.369 Other intervertebral disc degeneration, lumbar region without mention of lumbar back pain or lower extremity pain; G95.89 Other specified diseases of spinal cord; M50.30 Other cervical disc degeneration, unspecified cervical region; M51.35 Other intervertebral disc degeneration, thoracolumbar region; M43.26 Fusion of spine, lumbar region; M48.02 Spinal stenosis, cervical region; M48.061 Spinal stenosis, lumbar region without neurogenic claudication; R51.9 Headache, unspecified
CPT/HCPCS: 70553; 72141; 72146; 72148; A9577